=== PATIENT | female | born 1945 | race Caucasian/White ===

== ENCOUNTER 2018-12-06 05:59 | Day surgery (SDC) | payer MEDICARE, OTHER ==
[2018-12-06] MEDS ORDERED: Ondansetron 4 MG/2 ML SDV IVPUSH ONE (06:00)
[2018-12-06] MEDS ORDERED: Midazolam 1 MG/ML 2 ML SDV IV ONE (06:00)
[2018-12-06] MEDS ORDERED: Lactated Ringers 1,000 ML IV SCH (06:45)
[2018-12-06] MEDS ORDERED: Dextrose 5% in Water 1,000 ML IV SCH (08:00)
[2018-12-06 08:58] VITALS: BP 155/56; PULSE 70
--- NOTE | 2018-12-07 09:02 | OR ---
DATE OF OPERATION: 12/06/2018 SURGEON: Britt Yin MD PREOPERATIVE DIAGNOSIS: Visually significant cataract, right eye. POSTOPERATIVE DIAGNOSIS: Visually significant cataract, right eye. PROCEDURES PERFORMED: Phacoemulsification with intraocular lens placement, right eye. ASSISTANTS: None. ANESTHESIA: Local with sedation. COMPLICATIONS: None. BLOOD LOSS: None. IMPLANTS: A 21.0 diopter lens implanted. CDE: 1.85. DESCRIPTION OF PROCEDURE: After risks and benefits were reviewed with the patient, consent was obtained in the preoperative area, and the operative eye was marked with a surgical pen. In the preoperative area, due to Levaquin allergy, the patient received separate dilating drops consisting of cyclopentolate 1% and 2.5% phenylephrine with topical proparacaine to the right eye. The patient required 4 sets of drops due to poor dilation. The patient was taken to the operating room, where a time-out was performed, and the patient was placed under monitored anesthesia care. Topical tetracaine was used for anesthesia. The operative eye was prepped and draped for ophthalmic surgery, and the microscope was brought into position and focussed. A paracentesis incision was made, followed by injection of preservative-free 1% lidocaine into the anterior chamber, followed by injection of Viscoat into the anterior chamber. A microkeratome blade was used to make a corneal limbal incision temporarily. A cystotome was used to make the beginning of the capsulorrhexis, which was carried around 360 degrees in a curvilinear fashion using Utrata forceps. A Friend cannula with BSS was used to hydrodissect and hydrodelineate the nucleus. The nucleus was removed in a divide and conquer manner using phacoemulsification. Irrigation and aspiration were used to remove the remaining cortical material. Provisc was used to inflate the capsular bag, and a pre-loaded 21.0 diopter lens, serial number [id number] was injected into the capsular bag. A Sinskey hook was used to position and center the lens. Next, irrigation and aspiration was used to remove any remaining viscoelastic and cortical material from the anterior chamber. BSS on a cannula was used to inflate the anterior chamber and hydrate the wound. The wound was checked and found to be watertight. No moxifloxacin was injected due to Levaquin allergy. Drapes were removed and the eye was cleaned. A drop of brimonidine 0.15% and a drop of TobraDex was placed. The eye was shielded, and the patient was taken to the recovery room in stable condition. /[id number] DOROTEO/VALARIE CC: SHANEL LEIVA, [employer] O[employer]
== END 2018-12-06 09:40 | disposition home or self-care (01) ==
LOC: FB.SDS 05:59
PROVIDERS: ATTEND Ophthalmology
DX: E11.36 Type 2 diabetes mellitus with diabetic cataract (principal); I10 Essential (primary) hypertension; M16.11 Unilateral primary osteoarthritis, right hip; K21.9 Gastro-esophageal reflux disease without esophagitis; K29.50 Unspecified chronic gastritis without bleeding; E78.00 Pure hypercholesterolemia, unspecified; J44.9 Chronic obstructive pulmonary disease, unspecified; F41.1 Generalized anxiety disorder; E66.9 Obesity, unspecified; Z68.43 Body mass index [BMI] 50.0-59.9, adult; Z79.899 Other long term (current) drug therapy; Z79.4 Long term (current) use of insulin; Z88.6 Allergy status to analgesic agent; Z88.1 Allergy status to other antibiotic agents; Z88.8 Allergy status to other drugs, medicaments and biological substances; Z91.018 Allergy to other foods; Z91.048 Other nonmedicinal substance allergy status; Z79.82 Long term (current) use of aspirin
CPT/HCPCS: 00142; 66984; 82962; J2250; J2405; J7060; V2632

== ENCOUNTER 2019-01-10 12:10 | Emergency (ER) | payer MEDICARE, OTHER ==
[2019-01-10] MEDS ORDERED: Magnesium Sulfate/Water 2 GM in Premix Bag 1 BAG IV STA (13:02)
[2019-01-10] MEDS ORDERED: Nitroglycerin 0.4 MG Tab.SL SL PRN (13:10)
--- NOTE | 2019-01-10 13:10 | EDM.PDOC ---
ED HPI GENERAL MEDICAL PROBLEM - General Stated Complaint: POSSIBLE TIA Time Seen by Provider: 01/10/19 12:15 Source of Information: Reports: Patient History Limitations: Reports: No Limitations - History of Present Illness INITIAL COMMENTS - FREE TEXT/NARRATIVE: sent over from walkin clinic with concern for left leg weakness, right facial droop. Patient states that she has been under a lot of stress lately. She went to bed about 0600 this morning feeling ok and then woke up around 0800. When she went to take a drink of water and breakfast of slimfast and it all came out the right side of her face. She waited a while, then her left arm started to feel erica tingly and like it was falling asleep, lasted maybe 20 minutes. has had on/off symptoms over the past week of arm feeling funny, pain in left side of neck and jaw, and chest feeling fluttery/funny. Not sure how long it lasts. Sometimes feels sweaty with it. No nausea or vomiting, but has had diarrhea over the past few days. Nothing seems to bring it on, but if she stops what she is doing and takes some deep breaths, it seems to go away. New this morning was the right side of her face feeling funny. She also has had some weakness in her left leg, but this is chronic and longstanding. Maybe feels slightly stiffer when trying to move it. History diabetes on insulin, didn't take this morning. Takes losartan, HCTZ, procardia XR, and metoprolol for blood pressure. Only took Losartan and Procardia this morning. She states she had three temperatures 103F oral when she is very stressed, but then it would immediately come back down. No other symptoms with it. - Related Data Allergies Allergy/AdvReac Type Severity Reaction Status Date / Time acetaminophen [From Midol] Allergy Tachycardia Verified 01/10/19 14:16 ammonia Allergy Nausea and Verified 01/10/19 14:16 Vomiting aspirin Allergy Nose Bleeds Verified 01/10/19 14:16 corn [[place]] Allergy Headache Verified 01/10/19 14:16 doxycycline Allergy Anaphylactic Verified 01/10/19 14:16 Shock duloxetine [From Cymbalta] Allergy Other Verified 01/10/19 14:16 erythromycin base Allergy Anaphylactic Verified 01/10/19 14:16 [Erythromycin Base] Shock levofloxacin [From Levaquin] Allergy Anaphylactic Verified 01/10/19 14:16 Shock nedocromil sodium Allergy Anaphylactic Verified 01/10/19 14:16 [From Tilade] Shock nisoldipine [From Sular] Allergy Tachycardia Verified 01/10/19 14:16 nitrofurantoin Allergy Cannot Verified 01/10/19 14:16 [From Macrobid] Remember nitrofurantoin Allergy Cannot Verified 01/10/19 14:16 macrocrystalline Remember [From Macrobid] pamabrom [From Midol] Allergy Tachycardia Verified 01/10/19 14:16 pseudoephedrine Allergy Cannot Verified 01/10/19 14:16 Remember pyrilamine maleate Allergy Tachycardia Verified 01/10/19 14:16 [From Midol] Anything with bleach in it Allergy Hives Uncoded 01/10/19 14:16 METALS Allergy Itching Uncoded 01/10/19 14:16 Wheat Allergy Headache Uncoded 01/10/19 14:16 Home Meds: Home Meds Eszopiclone [Lunesta] 2 mg PO BEDTIME PRN 11/23/13 [History] Multivitamin with Minerals [Multiple Vitamin] 1 tab PO DAILY 12/11/13 [History] Losartan [Cozaar] 100 mg PO BEDTIME 04/17/14 [History] Metoprolol Succinate [Toprol XL] 75 mg PO BEDTIME 04/17/14 [History] NIFEdipine [Nifedipine ER] 60 mg PO DAILY 04/17/14 [History] Insulin Aspart [Novolog Flexpen] 8 unit SQ TIDMEALS 02/08/15 [History] Pantoprazole [ProTONIX] 40 mg PO 0600 02/08/15 [History] Aspirin [Children's Aspirin] 81 mg PO DAILY 12/04/18 [History] Cannabidiol (Cbd) Extract [Epidiolex] 1 - 2 capful PO DAILY 12/04/18 [History] Docusate Sodium [Colace] 100 mg PO BID PRN 12/04/18 [History] Insulin Detemir [Levemir Flextouch] 33 units SQ BEDTIME 12/04/18 [History] Pramipexole [Mirapex] 1 mg PO Q12H PRN 12/04/18 [History] Rosuvastatin [Crestor] 20 mg PO DAILY 12/04/18 [History] Temazepam 15 mg PO BEDTIME PRN 12/04/18 [History] Triamcinolone Acetonide [Triamcinolone Acetonide 0.1% Crm] 1 applic TP BID 12/04 [History] diphenhydrAMINE [Benadryl] 25 mg PO TID 12/04/18 [History] hydroCHLOROthiazide [Hydrochlorothiazide] 25 mg PO DAILY 12/04/18 [History] metFORMIN HCl [Glucophage] 1,000 mg PO BID 12/04/18 [History] traMADol [Ultram] 50 mg PO Q6H PRN 12/04/18 [History] Fluticasone Propionate [Flonase] 1 spray NASBOTH BID 01/10/19 [History] Past Medical History Cardiovascular History: Reports: Arrhythmia, Heart Murmur, High Cholesterol, Hypertension Other Cardiovascular History: BRADYCARDIA Respiratory History: Reports: Asthma, Bronchitis, Recurrent, COPD, Sleep Apnea Gastrointestinal History: Reports: GERD Other [place] [employer] History: 3 childrewn all grown Musculoskeletal History: Reports: Fibromyalgia, Osteoarthritis, Other (See Below ) Other Musculoskeletal History: LUMBAR SPONDYLOSIS Neurological History: Reports: Neuropathy, Peripheral Psychiatric History: Reports: Anxiety Endocrine/Metabolic History: Reports: Diabetes, Type II, Obesity/BMI 30+ - Past Surgical History HEENT Surgical History: Reports: Adenoidectomy, Tonsillectomy GI Surgical History: Reports: Appendectomy, Cholecystectomy, Colonoscopy, ERCP Female Surgical History: Reports: Hysterectomy Neurological Surgical History: Reports: Discectomy, Laminectomy Musculoskeletal Surgical History: Reports: Other (See Below) Other Musculoskeletal Surgeries/Procedures:: BACK SURGERY, KNEE SURGERY Oncologic Surgical History: Reports: Biopsy of Breast Social & Family History - Tobacco Use Smoking Status *Q: Never Smoker - Caffeine Use Caffeine Use: Reports: None - Alcohol Use Alcohol Use History: No - Recreational Drug Use Recreational Drug Use: No - Living Situation & Occupation Social History Comment: significant emotion stress - daughter two years ago of heart arrhythmia. Was with family at a reunion this weekend and her twin sister is an alcoholic, which was also very difficult for her. ED ROS GENERAL - Review of Systems Review Of Systems: See Below Constitutional: Reports: Chills, Malaise, Weakness, Fatigue. Denies: Fever HEENT: Reports: No Symptoms Respiratory: Denies: Shortness of Breath, Wheezing, Cough, Sputum Cardiovascular: Reports: Chest Pain, Lightheadedness, Palpitations (chronic). Denies: Dyspnea on Exertion GI/Abdominal: Reports: Diarrhea. Denies: Nausea, Vomiting : Denies: Dysuria, Frequency, Urgency Musculoskeletal: Reports: Back Pain, Leg Pain Skin: Reports: No Symptoms Neurological: Reports: Confusion, Numbness, Tingling. Denies: Headache, Pre- Existing Deficit, Seizure, Trouble Speaking, Gait Disturbance Psychiatric: Reports: Depression Hematologic/Lymphatic: Reports: No Symptoms Immunologic: Reports: No Symptoms ED EXAM, GENERAL - Physical Exam Exam: See Below Free Text/Narrative:: Gen.: Alert, very pleasant no acute distress. Head is atraumatic. Neck is supple and there is no cervical lymphadenopathy. Heart is regular rate and rhythm voiding on tachycardia, I do not hear any murmur or rub, decreased sounds secondary to body habitus. Lungs are clear throughout with no wheezes or crackles.abdomen is obese, soft and nontender. peripheral pulses are +2 in both equal for upper and lower extremities although difficult to palpate in the lower initially. She has no lower extremity edema but is morbidly obese. No calf tenderness. Pupils are equal and reactive, uvula is midline, tongue is midline. Facial muscles are symmetric and the sensation is present on both sides. Neck strength equal. No pronator drift. Left leg unable to lift, chronic per her report. Testing of muscles of the lower leg is equal. Hand/arm strength equal side to side. Gait is altered primarily due to left leg it seems. Reflexes very difficult to illicit secondary to body habitus. EKG INTERPRETATION Rhythm: NSR [place]: Normal P-Wave: Present QRS: Normal ST-T: Normal Comparison: Change From Previous EKG Course - Vital Signs Text/Narrative:: presenting with two concerning symptoms - possible TIA this morning and also concern for unstable angina neuro exam normal labs, head CT ordered EKG no ST changes, PTc 521 - Orders/Labs/Meds Orders: Active Orders 24 hr Category Date Time Status EKG Documentation Completion [RC] ASDIRECTED Care 01/10/19 12:21 Active EKG Documentation Completion [RC] STAT Care 01/10/19 12:21 Active CXR [Chest 1V Frontal] [CR] Stat Exams 01/10/19 14:12 Taken Head wo Cont [CT] Stat Exams 01/10/19 12:21 Taken Nitroglycerin [Nitrostat] Med 01/10/19 13:10 Active 0.4 mg SL Q5M PRN Sodium Chloride 0.9% [Normal Saline] 1,000 ml Med 01/10/19 14:15 Active IV ASDIRECTED EKG 12 Lead [EK] Routine Ther 01/10/19 12:21 Ordered Medication Orders Sodium Chloride (Normal Saline) 1,000 mls @ 500 mls/hr IV ASDIRECTED GRUPO Last Infusion: 01/10/19 14:42 Dose: 400 mls/hr Admin: 01/10/19 14:33 Dose: 500 mls/hr Nitroglycerin (Nitrostat) 0.4 mg SL Q5M PRN PRN Reason: Chest Pain Labs: Laboratory Tests 01/10/19 01/10/19 01/10/19 Range/Units 12:20 12:45 12:45 WBC 6.4 (4.5-12.0) X10-3/uL RBC 4.05 (3.23-5.20) x10(6)uL Hgb 11.6 (11.5-15.5) g/dL Hct 34.5 (30.0-51.3) % MCV 85.2 (80-96) fL MCH 28.6 (27.7-33.6) pg MCHC 33.6 (32.2-35.4) g/dL RDW 14.1 (11.5-15.5) % Plt Count 177 (125-369) X10(3)uL MPV 11.2 H (7.4-10.4) fL Neut % (Auto) 59.4 (46-82) % Lymph % (Auto) 30.4 (13-37) % [place] % (Auto) 5.9 (4-12) % Eos % (Auto) 3 (1.0-5.0) % Baso % (Auto) 1 (0-2) % Neut # (Auto) 3.7 (1.6-8.3) # Lymph # (Auto) 2.0 (0.6-5.0) # [place] # (Auto) 0.4 (0.0-1.3) # Eos # (Auto) 0.2 (0.0-0.8) # Baso # (Auto) 0.1 (0.0-0.2) # PT (8.7-11.1) INR (0.89-1.13) Sodium 139 (135-145) mmol/L Potassium 3.7 (3.5-5.3) mmol/L Chloride 106 (100-110) mmol/L Carbon Dioxide 23 (21-32) mmol/L BUN 11 (7-18) mg/dL Creatinine 0.8 (0.55-1.02) mg/dL Est Cr Clr Drug Dosing TNP Estimated GFR (MDRD) > 60 (>60) BUN/Creatinine Ratio 13.8 (9-20) Glucose 264 H (80-116) mg/dL Calcium 8.4 L (8.6-10.2) mg/dL Magnesium 1.6 L (1.8-2.5) mg/dL Total Bilirubin 0.4 (0.1-1.3) mg/dL AST 19 (5-25) IU/L ALT 15 (12-36) U/L Alkaline Phosphatase 102 (56-112) IU/L Troponin I (<0.017-0.056) ng/mL Total Protein 7.0 (6.0-8.0) g/dL Albumin 2.7 L (3.2-4.6) g/dL Globulin 4.3 g/dL Albumin/Globulin Ratio 0.6 01/10/19 01/10/19 Range/Units 12:45 12:45 WBC (4.5-12.0) X10-3/uL RBC (3.23-5.20) x10(6)uL Hgb (11.5-15.5) g/dL Hct (30.0-51.3) % MCV (80-96) fL MCH (27.7-33.6) pg MCHC (32.2-35.4) g/dL RDW (11.5-15.5) % Plt Count (125-369) X10(3)uL MPV (7.4-10.4) fL Neut % (Auto) (46-82) % Lymph % (Auto) (13-37) % [place] % (Auto) (4-12) % Eos % (Auto) (1.0-5.0) % Baso % (Auto) (0-2) % Neut # (Auto) (1.6-8.3) # Lymph # (Auto) (0.6-5.0) # [place] # (Auto) (0.0-1.3) # Eos # (Auto) (0.0-0.8) # Baso # (Auto) (0.0-0.2) # PT 9.2 (8.7-11.1) INR 0.95 (0.89-1.13) Sodium (135-145) mmol/L Potassium (3.5-5.3) mmol/L Chloride (100-110) mmol/L Carbon Dioxide (21-32) mmol/L BUN (7-18) mg/dL Creatinine (0.55-1.02) mg/dL Est Cr Clr Drug Dosing Estimated GFR (MDRD) (>60) BUN/Creatinine Ratio (9-20) Glucose (80-116) mg/dL Calcium (8.6-10.2) mg/dL Magnesium (1.8-2.5) mg/dL Total Bilirubin (0.1-1.3) mg/dL AST (5-25) IU/L ALT (12-36) U/L Alkaline Phosphatase (56-112) IU/L Troponin I 0.020 (<0.017-0.056) ng/mL Total Protein (6.0-8.0) g/dL Albumin (3.2-4.6) g/dL Globulin g/dL Albumin/Globulin Ratio Meds: Medications Generic Name Dose Route Start Last Admin Trade Name Freq PRN Reason Stop Dose Admin Sodium Chloride 1,000 mls @ 500 mls/hr 01/10/19 14:15 01/10/19 14:42 Normal Saline IV 400 mls/hr ASDIRECTED GRUPO Infusion Nitroglycerin 0.4 mg 01/10/19 13:10 Nitrostat SL Q5M PRN Chest Pain Discontinued Medications Generic Name Dose Route Start Last Admin Trade Name Freq PRN Reason Stop Dose Admin Aspirin 324 mg 01/10/19 13:10 01/10/19 14:44 Aspirin PO 01/10/19 13:11 324 mg ONETIME ONE Administration Magnesium Sulfate 2 gm/ Premix 50 mls @ 150 mls/hr 01/10/19 13:02 01/10/19 14 :42 IV 01/10/19 13:21 25 mls/hr ONETIME STA Infusion Labetalol HCl 20 mg 01/10/19 15:01 Normodyne IVPUSH 01/10/19 15:02 ONETIME ONE Protocol - Re-Assessments/Exams Free Text/Narrative Re-Assessment/Exam: 01/10/19 initial troponin returned 0.020, facility cutoff 0.[address] no blood seen, no midline shift rest of labs within normal limits except for elevated blood glucose Magnesium ordered for long QT BP very labile -- will hold on meds for now, if remains elevated will give small dose of beta gaby discussed with patient and family recommend transferring to [facility] for further workup of TIA and possible cardiac event/unstable angina. They are in agreement. Call placed to Dr. Familia Alberts accepting. Departure - Departure Time of Disposition: 15:50 Disposition: DC/Tfer to Acute Hospital 02 Condition: Good Clinical Impression: Unstable angina, Chest pain, rule out acute myocardial infarction, Diabetes mellitus type 2, Transient ischemic attack (TIA), Hypertension, Prolonged QT interval - Discharge Information *PRESCRIPTION DRUG MONITORING PROGRAM REVIEWED*: Not Applicable *COPY OF PRESCRIPTION DRUG MONITORING REPORT IN PATIENT RENATO: Not Applicable Referrals: PCP,Unknown [Ordering Only Provider] - Additional Instructions: transfer to Dr. Familia Alberts accepting - My Orders Last 24 Hours: My Active Orders 01/10/19 12:21 EKG Documentation Completion [RC] ASDIRECTED EKG Documentation Completion [RC] STAT Head wo Cont [CT] Stat EKG 12 Lead [EK] Routine 01/10/19 13:10 Nitroglycerin [Nitrostat] 0.4 mg SL Q5M PRN 01/10/19 14:12 CXR [Chest 1V Frontal] [CR] Stat 01/10/19 14:15 Sodium Chloride 0.9% [Normal Saline] 1,000 ml IV ASDIRECTED - Assessment/Plan Last 24 Hours: My Active Orders 01/10/19 12:21 EKG Documentation Completion [RC] ASDIRECTED EKG Documentation Completion [RC] STAT Head wo Cont [CT] Stat EKG 12 Lead [EK] Routine 01/10/19 13:10 Nitroglycerin [Nitrostat] 0.4 mg SL Q5M PRN 01/10/19 14:12 CXR [Chest 1V Frontal] [CR] Stat 01/10/19 14:15 Sodium Chloride 0.9% [Normal Saline] 1,000 ml IV ASDIRECTED
[2019-01-10] MEDS ORDERED: Sodium Chloride 0.9% 1,000 ML IV SCH (14:15)
[2019-01-10] MEDS: Aspirin 81 MG Tab.Chew PO ONE ×2 (14:33→14:44)
[2019-01-10] MEDS ORDERED: Labetalol 100 MG/20 ML MDV IVPUSH ONE (15:01)
[2019-01-10 18:41] VITALS: BP 241/105; PULSE 93
--- NOTE | 2019-01-11 09:44 | CR ---
INDICATION: Chest pain, palpitations. CHEST: AP upright view of the chest 01/10/19 was compared with 02/14/15 and 05/13, revealing the heart to be enlarged. Pulmonary vasculature appears prominent. Interstitial markings are prominent. Some alveolar infiltration is present. Findings suggest CHF with acute pulmonary edema, although aspiration pneumonia could also be present with this appearance. The aorta is tortuous with calcification in the arch. No large pleural effusion is identified. Overlying EKG leads are noted. IMPRESSION: ASHD, cardiomegaly with probable CHF and acute pulmonary edema. MTDD
== END 2019-01-10 16:40 ==
LOC: FB.ED 12:10
DX: G45.9 Transient cerebral ischemic attack, unspecified (principal); I20.0 Unstable angina; E11.42 Type 2 diabetes mellitus with diabetic polyneuropathy; I10 Essential (primary) hypertension; I45.81 Long QT syndrome; J44.9 Chronic obstructive pulmonary disease, unspecified; K21.9 Gastro-esophageal reflux disease without esophagitis; E78.00 Pure hypercholesterolemia, unspecified; M19.90 Unspecified osteoarthritis, unspecified site; E66.9 Obesity, unspecified; Z68.42 Body mass index [BMI] 45.0-49.9, adult; Z88.8 Allergy status to other drugs, medicaments and biological substances; Z88.6 Allergy status to analgesic agent; Z91.018 Allergy to other foods; Z88.1 Allergy status to other antibiotic agents; Z79.899 Other long term (current) drug therapy; Z79.4 Long term (current) use of insulin; Z79.82 Long term (current) use of aspirin
CPT/HCPCS: 36415; 70450; 71045; 80053; 81001; 83735; 84484; 85025; 85610; 93005; 96365; 96366; 96375; 99285; A9270; J3475; J3490; J7030; 93010

== ENCOUNTER 2019-02-14 11:55 | Observation (INO) | payer MEDICARE, OTHER ==
[~2019-02-14 11:55] MED LIST: Sucralfate 1 GM Tab PO SCH
[2019-02-14] MEDS ORDERED: Magnesium Sulfate/Water 2 GM in Premix Bag 1 BAG IV ONE (12:48)
[2019-02-14] MEDS ORDERED: NIFEdipine 60 MG Tab.ER PO ONE (14:43)
[2019-02-14] MEDS ORDERED: Hydrochlorothiazide 25 MG Tab PO ONE (14:44)
--- NOTE | 2019-02-14 16:03 | EDM.PDOC ---
ED HPI GENERAL MEDICAL PROBLEM - General Chief Complaint: Chest Pain Time Seen by Provider: 02/14/19 12:14 Source of Information: Reports: Patient History Limitations: Reports: No Limitations - History of Present Illness INITIAL COMMENTS - FREE TEXT/NARRATIVE: patient is a very pleasant 73-year-old female who presents today with concern for an episode this morning while she was at physical therapy where she suddenly had pain in her chest, left side and shoulder, felt sweaty and nauseous at the same time. She is not sure how long this lasted but it did resolve on its own without any intervention. She was evaluated by clinic physician, given ASA, and sent here for troponin and further evaluation. History diabetes, HTN, HLD daughter of arrhythmia 2 years ago Patient reports she has had trouble with both chronic left shoulder pain and ongoing nausea, especially following meals. She also describes some episodes where she will get left shoulder and arm pain, then get a bit sweaty. These seem to come and go without warning, and she is not able to quantify the timeframe or how often it happens. She is under a lot of stress at home right now. She has had chronic nausea and a feeling of something getting stuck in her stomach at times, but then self resolves after a while. Her appetite has sometimes been decreased, but she again cites her home stressors regarding this. She denies cough, recent cold or URI, fever, urinary symptoms, change in bowel habits. L anterior chest Pain Score (Numeric/FACES): 1 - Related Data Allergies Allergy/AdvReac Type Severity Reaction Status Date / Time ammonia Allergy Nausea and Verified 02/14/19 12:19 Vomiting aspirin Allergy Nose Bleeds Verified 02/14/19 12:19 corn [[place]] Allergy Headache Verified 02/14/19 12:19 doxycycline Allergy Anaphylactic Verified 02/14/19 12:19 Shock duloxetine [From Cymbalta] Allergy Other Verified 02/14/19 12:19 erythromycin base Allergy Anaphylactic Verified 02/14/19 12:19 [Erythromycin Base] Shock levofloxacin [From Levaquin] Allergy Anaphylactic Verified 02/14/19 12:19 Shock nedocromil sodium Allergy Anaphylactic Verified 02/14/19 12:19 [From Tilade] Shock nisoldipine [From Sular] Allergy Tachycardia Verified 02/14/19 12:19 nitrofurantoin Allergy Cannot Verified 02/14/19 12:19 [From Macrobid] Remember nitrofurantoin Allergy Cannot Verified 02/14/19 12:19 macrocrystalline Remember [From Macrobid] pamabrom [From Midol] Allergy Tachycardia Verified 02/14/19 12:19 pseudoephedrine Allergy Cannot Verified 02/14/19 12:19 Remember pyrilamine maleate Allergy Tachycardia Verified 02/14/19 12:19 [From Midol] Anything with bleach in it Allergy Hives Uncoded 02/14/19 12:19 METALS Allergy Itching Uncoded 02/14/19 12:19 Wheat Allergy Headache Uncoded 02/14/19 12:19 Home Meds: Home Meds Multivitamin with Minerals [Multiple Vitamin] 1 tab PO DAILY 12/11/13 [History] Losartan [Cozaar] 100 mg PO BEDTIME 04/17/14 [History] Metoprolol Succinate [Toprol XL] 75 mg PO BEDTIME 04/17/14 [History] NIFEdipine [Nifedipine ER] 60 mg PO DAILY 04/17/14 [History] Insulin Aspart [Novolog Flexpen] 8 unit SQ TIDMEALS 02/08/15 [History] Pantoprazole [ProTONIX] 40 mg PO 0600 02/08/15 [History] Aspirin [Children's Aspirin] 81 mg PO DAILY 12/04/18 [History] Docusate Sodium [Colace] 100 mg PO BID PRN 12/04/18 [History] Insulin Detemir [Levemir Flextouch] 33 units SQ BEDTIME 12/04/18 [History] Pramipexole [Mirapex] 1 mg PO TID 12/04/18 [History] Rosuvastatin [Crestor] 20 mg PO DAILY 12/04/18 [History] Triamcinolone Acetonide [Triamcinolone Acetonide 0.1% Crm] 1 applic TP BID 12/04 [History] diphenhydrAMINE [Benadryl] 25 mg PO TID PRN 12/04/18 [History] hydroCHLOROthiazide [Hydrochlorothiazide] 25 mg PO DAILY 12/04/18 [History] metFORMIN HCl [Glucophage] 1,000 mg PO BID 12/04/18 [History] traMADol [Ultram] 50 mg PO TID 12/04/18 [History] Fluticasone Propionate [Flonase] 1 spray NASBOTH BID 01/10/19 [History] Furosemide [Lasix] 40 mg PO DAILY 02/14/19 [History] Ibuprofen 400 mg PO TID PRN 02/14/19 [History] Sucralfate [Carafate] 1 gm PO TID 02/14/19 [History] Temazepam [Restoril] 15 mg PO BEDTIME PRN 02/14/19 [History] Past Medical History Cardiovascular History: Reports: Arrhythmia, Heart Failure, Heart Murmur, High Cholesterol, Hypertension Other Cardiovascular History: BRADYCARDIA Respiratory History: Reports: Asthma, Bronchitis, Recurrent, COPD, Sleep Apnea Gastrointestinal History: Reports: GERD Genitourinary History: Reports: None DIRECTOR OF LEARNING History: Reports: Other DIRECTOR OF LEARNING History: 3 childrewn all grown, Musculoskeletal History: Reports: Arthritis, Back Pain, Chronic, Fracture, Fibromyalgia, Neck Pain, Chronic, Osteoarthritis, Other (See Below) Other Musculoskeletal History: LUMBAR SPONDYLOSIS, hx fx L arm, toe, L ankle fx , fx tailbone Neurological History: Reports: Migraines, Neuropathy, Diabetic, Neuropathy, Peripheral, Other (See Below) Other Neuro History: hx bells palsy, 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 Psychiatric History: Reports: Anxiety, Dementia Endocrine/Metabolic History: Reports: Diabetes, Type II, Obesity/BMI 30+ Dermatologic History: Reports: Psoriasis - Infectious Disease History Infectious Disease History: Reports: Chicken Pox, Measles, Mumps, Shingles - Past Surgical History HEENT Surgical History: Reports: Adenoidectomy, Cataract Surgery, Tonsillectomy Other HEENT Surgeries/Procedures: R eye cataract Cardiovascular Surgical History: Reports: None GI Surgical History: Reports: Appendectomy, Cholecystectomy, Colonoscopy, ERCP Female Surgical History: Reports: Hysterectomy, Salpingo-Oophorectomy Neurological Surgical History: Reports: Discectomy, Laminectomy Musculoskeletal Surgical History: Reports: Arthroscopic Knee, Other (See Below) Other Musculoskeletal Surgeries/Procedures:: BACK SURGERY, R KNEE SURGERY Oncologic Surgical History: Reports: Biopsy of Breast Social & Family History - Family History Family Medical History: Noncontributory - Tobacco Use Smoking Status *Q: Never Smoker - Caffeine Use Caffeine Use: Reports: None - Recreational Drug Use Recreational Drug Use: No ED ROS GENERAL - Review of Systems Review Of Systems: ROS reveals no pertinent complaints other than HPI. ED EXAM, GENERAL - Physical Exam Exam: See Below Free Text/Narrative:: gen.: Alert, pleasant no acute distress. Head is atraumatic, throat without erythema, mucous members are moist. Neck is supple. Lungs are clear throughout with no wheezes or crackles. Heart is regular rate and rhythm. I do not hear murmur. Abdomen positive bowel sounds, soft nondistended nontender. Peripheral pulses +2 in both the upper and lower extremities and there is no lower extremity edema. Calves are equal in size and nontender. Her strength is equal side to side. She has a left-sided facial droop consistent with Lyons's palsy. Speech is clear and coherent. Course - Vital Signs Text/Narrative:: history concerning for possible ACS. No immediate risk factors for PE, no other concerns for infection. Difficult history to sort given chronic nausea and chronic intermittent left shoulder pain. EKG sinus rhythm no ST changes. Labs ordered. given ASA at clinic (prior to arrival.) Last Recorded V/S: Last Vital Signs Temp 35.2 C L 02/14/19 11:55 Pulse 68 02/14/19 11:55 Resp 18 02/14/19 11:55 BP 181/86 H 02/14/19 11:55 Pulse Ox 93 L 02/14/19 11:55 - Orders/Labs/Meds Orders: Medication Orders Acetaminophen (Tylenol) 650 mg PO Q4H PRN PRN Reason: Pain (Mild 1-3)/fever Aspirin (Aspirin) 81 mg PO DAILY [facility] Diphenhydramine HCl (Benadryl) 25 mg PO TID PRN PRN Reason: Hives Docusate Sodium (Colace) 100 mg PO BID PRN PRN Reason: Constipation Fluticasone Propionate (Flonase) gm NASBOTH BID PRN PRN Reason: Allergies Furosemide (Lasix) 40 mg PO DAILY PRN PRN Reason: Edema Hydrochlorothiazide (Hydrochlorothiazide) 25 mg PO DAILY [facility] Promethazine HCl 6.25 mg/ (Sodium Chloride) 50.25 mls @ 200 mls/hr IV Q6H PRN PRN Reason: Nausea/Vomiting Losartan Potassium (Cozaar) 100 mg PO BEDTIME [facility] Metformin HCl (Glucophage) 1,000 mg PO BIDMEALS [facility] Metoprolol Succinate (Toprol Xl) 75 mg PO BEDTIME [facility] Morphine Sulfate (Morphine) 2 mg IVPUSH Q2H PRN PRN Reason: Pain (severe 7-10) Nifedipine (Procardia Xl) 60 mg PO DAILY [facility] Nitroglycerin (Nitrostat) 0.4 mg SL Q5M PRN PRN Reason: Chest Pain Non-Formulary Medication (Insulin Aspart [Novolog Flexpen]) 8 unit SQ TIDMEALS [facility] Non-Formulary Medication (Insulin Detemir [Levemir Flextouch]) 33 units SQ BEDTIME [facility] Non-Formulary Medication (Multivitamin With Minerals [Multiple Vitamin]) 1 tab PO DAILY [facility] Ondansetron HCl (Zofran Odt) 4 mg PO Q4H PRN PRN Reason: nausea, able to take PO Pantoprazole Sodium (Protonix) 40 mg PO 0600 [facility] Pramipexole Dihydrochloride (Mirapex) 1 mg PO TID PRN PRN Reason: RESTLESS LEGS Rosuvastatin Calcium (Crestor) 20 mg PO DAILY [facility] Sodium Chloride (Saline Flush) 10 ml FLUSH ASDIRECTED PRN PRN Reason: Keep Vein Open Sucralfate (Carafate) 1 gm PO TIDAC [facility] Temazepam (Restoril) 15 mg PO BEDTIME PRN PRN Reason: Sleep Tramadol HCl (Ultram) 50 mg PO TID PRN PRN Reason: Pain Triamcinolone Acetonide (Triamcinolone Acetonide 0.1% Crm) gm TOP BID PRN PRN Reason: Rash Labs: Laboratory Tests 02/14/19 02/14/19 02/14/19 Range/Units 12:05 12:05 12:05 WBC 7.3 (4.5-12.0) X10-3/uL RBC 4.40 (3.23-5.20) x10(6)uL Hgb 12.0 (11.5-15.5) g/dL Hct 37.2 (30.0-51.3) % MCV 84.6 (80-96) fL MCH 27.2 L (27.7-33.6) pg MCHC 32.1 L (32.2-35.4) g/dL RDW 13.7 (11.5-15.5) % Plt Count 166 (125-369) X10(3)uL MPV 13.0 H (7.4-10.4) fL Neut % (Auto) 57.1 (46-82) % Lymph % (Auto) 33.9 (13-37) % [place] % (Auto) 5.9 (4-12) % Eos % (Auto) 2 (1.0-5.0) % Baso % (Auto) 1 (0-2) % Neut # (Auto) 4.1 (1.6-8.3) # Lymph # (Auto) 2.5 (0.6-5.0) # [place]eadle # (Auto) 0.4 (0.0-1.3) # Eos # (Auto) 0.2 (0.0-0.8) # Baso # (Auto) 0.1 (0.0-0.2) # Sodium 139 (135-145) mmol/L Potassium 3.6 (3.5-5.3) mmol/L Chloride 101 D (100-110) mmol/L Carbon Dioxide 29 (21-32) mmol/L BUN 15 (7-18) mg/dL Creatinine 1.2 H (0.55-1.02) mg/dL Est Cr Clr Drug Dosing 38.69 mL/min Estimated GFR (MDRD) 44 L (>60) BUN/Creatinine Ratio 12.5 (9-20) Glucose 283 H (80-116) mg/dL Calcium 8.9 (8.6-10.2) mg/dL Troponin I < 0.017 L (<0.017-0.056) ng/mL 02/14/19 Range/Units 15:08 WBC (4.5-12.0) X10-3/uL RBC (3.23-5.20) x10(6)uL Hgb (11.5-15.5) g/dL Hct (30.0-51.3) % MCV (80-96) fL MCH (27.7-33.6) pg MCHC (32.2-35.4) g/dL RDW (11.5-15.5) % Plt Count (125-369) X10(3)uL MPV (7.4-10.4) fL Neut % (Auto) (46-82) % Lymph % (Auto) (13-37) % [place] % (Auto) (4-12) % Eos % (Auto) (1.0-5.0) % Baso % (Auto) (0-2) % Neut # (Auto) (1.6-8.3) # Lymph # (Auto) (0.6-5.0) # [place]eadle # (Auto) (0.0-1.3) # Eos # (Auto) (0.0-0.8) # Baso # (Auto) (0.0-0.2) # Sodium (135-145) mmol/L Potassium (3.5-5.3) mmol/L Chloride (100-110) mmol/L Carbon Dioxide (21-32) mmol/L BUN (7-18) mg/dL Creatinine (0.55-1.02) mg/dL Est Cr Clr Drug Dosing mL/min Estimated GFR (MDRD) (>60) BUN/Creatinine Ratio (9-20) Glucose (80-116) mg/dL Calcium (8.6-10.2) mg/dL Troponin I < 0.017 L (<0.017-0.056) ng/mL Meds: Medications Generic Name Dose Route Start Last Admin Trade Name Freq PRN Reason Stop Dose Admin Acetaminophen 650 mg 02/14/19 16:27 Tylenol PO Q4H PRN Pain (Mild 1-3)/fever Aspirin 81 mg 02/15/19 09:00 Aspirin PO DAILY [facility] Diphenhydramine HCl 25 mg 02/14/19 16:36 Benadryl PO TID PRN Hives Docusate Sodium 100 mg 02/14/19 16:36 Colace PO BID PRN Constipation Fluticasone Propionate gm 02/14/19 16:36 Flonase NASBOTH BID PRN Allergies Furosemide 40 mg 02/14/19 16:36 Lasix PO DAILY PRN Edema Hydrochlorothiazide 25 mg 02/15/19 09:00 Hydrochlorothiazide PO DAILY [facility] Promethazine HCl 6.25 mg/ 50.25 mls @ 200 mls/hr 02/14/19 16:27 Sodium Chloride IV Q6H PRN Nausea/Vomiting Losartan Potassium 100 mg 02/14/19 21:00 Cozaar PO BEDTIME [facility] Metformin HCl 1,000 mg 02/14/19 18:00 Glucophage PO BIDMEALS [facility] Metoprolol Succinate 75 mg 02/14/19 21:00 Toprol Xl PO BEDTIME [facility] Morphine Sulfate 2 mg 02/14/19 16:27 Morphine IVPUSH Q2H PRN Pain (severe 7-10) Nifedipine 60 mg 02/15/19 09:00 Procardia Xl PO DAILY [facility] Nitroglycerin 0.4 mg 02/14/19 16:32 Nitrostat SL Q5M PRN Chest Pain Non-Formulary Medication 8 unit 02/14/19 18:00 Insulin Aspart [Novolog Flexpen] SQ TIDMEALS [facility] Non-Formulary Medication 33 units 02/14/19 21:00 Insulin Detemir [Levemir Flextouch] SQ BEDTIME [facility] Non-Formulary Medication 1 tab 02/15/19 09:00 Multivitamin With Minerals [Multiple Vitamin] PO DAILY [facility] Ondansetron HCl 4 mg 02/14/19 16:27 Zofran Odt PO Q4H PRN nausea, able to take PO Pantoprazole Sodium 40 mg 02/15/19 06:00 Protonix PO 0600 [facility] Pramipexole Dihydrochloride 1 mg 02/14/19 16:36 Mirapex PO TID PRN RESTLESS LEGS Rosuvastatin Calcium 20 mg 02/14/19 16:36 Crestor PO DAILY [facility] Sodium Chloride 10 ml 02/14/19 16:27 Saline Flush FLUSH ASDIRECTED PRN Keep Vein Open Sucralfate 1 gm 02/14/19 17:30 Carafate PO TIDAC [facility] Temazepam 15 mg 02/14/19 16:36 Restoril PO BEDTIME PRN Sleep Tramadol HCl 50 mg 02/14/19 16:36 Ultram PO TID PRN Pain Triamcinolone Acetonide gm 02/14/19 16:36 Triamcinolone Acetonide 0.1% Crm TOP BID PRN Rash Discontinued Medications Generic Name Dose Route Start Last Admin Trade Name Freq PRN Reason Stop Dose Admin Hydrochlorothiazide 25 mg 02/14/19 14:44 02/14/19 15:24 Hydrochlorothiazide PO 02/14/19 14:45 25 mg ONETIME ONE Administration Magnesium Sulfate 2 gm/ Premix 50 mls @ 150 mls/hr 02/14/19 12:48 02/14/19 13 :34 IV 02/14/19 13:07 150 mls/hr ONETIME ONE Administration Nifedipine 60 mg 02/14/19 14:43 02/14/19 15:24 Procardia Xl PO 02/14/19 14:44 60 mg ONETIME ONE Administration - Re-Assessments/Exams Free Text/Narrative Re-Assessment/Exam: 02/14/19 1130 initial troponin negative, labs otherwise unremarkable. Will get second trop at 3 hours. Patient has not had recurrence of pain since here, still mild nausea. Hasn't taken meds today, so will give dose of home medications to help bring down blood pressure, which has remained slightly elevated and somewhat labile. Free Text/Narrative Re-Assessment/Exam: 02/14/19 15:45 second troponin negative. Given history discussed with patient obs admission for r/o ACS. Dr Engle accepting Departure - Departure Time of Disposition: 16:44 Disposition: Refer to Observation Condition: Good Clinical Impression: Chest pain in adult, Nausea - Discharge Information *PRESCRIPTION DRUG MONITORING PROGRAM REVIEWED*: Not Applicable *COPY OF PRESCRIPTION DRUG MONITORING REPORT IN PATIENT RENATO: Not Applicable
[2019-02-14] MEDS ORDERED: Ondansetron 4 MG Tab PO PRN (16:27)
[2019-02-14] MEDS ORDERED: Morphine 2 MG/ML Syringe IVPUSH PRN (16:27)
[2019-02-14] MEDS ORDERED: Promethazine 6.25 MG in Sodium Chloride 0.9% 50 ML IV PRN (16:27)
[2019-02-14] MEDS ORDERED: Sodium Chloride 0.9% 10 ML Syringe FLUSH PRN (16:27)
[2019-02-14] MEDS ORDERED: Acetaminophen 325 MG Tab PO PRN (16:27)
[2019-02-14] MEDS ORDERED: Nitroglycerin 0.4 MG Tab.SL SL PRN (16:32)
[2019-02-14] MEDS ORDERED: Docusate Sodium 100 MG Cap PO PRN (16:36)
[2019-02-14] MEDS ORDERED: Temazepam 15 MG Cap PO PRN (16:36)
[2019-02-14] MEDS ORDERED: Fluticasone Propionate Nasal Spray 16 GM Bottle NASBOTH PRN (16:36)
[2019-02-14] MEDS ORDERED: Furosemide 40 MG Tab *PTOM PO PRN (16:36)
[2019-02-14] MEDS ORDERED: diphenhydrAMINE 25 MG Cap PO PRN (16:36)
[2019-02-14] MEDS ORDERED: Triamcinolone Acetonide 0.1% Crm 15 GM Tube TOP PRN (16:36)
[2019-02-14] MEDS ORDERED: traMADol 50 MG Tab PO PRN (16:36)
--- NOTE | 2019-02-14 17:09 | PCM.HP.2 ---
H&P History of Present Illness - General Date of Service: 02/14/19 Admit Problem/Dx: Admission Diagnosis/Problem Admission Diagnosis/Problem Chest pain of uncertain etiology Source of Information: Patient, Provider - History of Present Illness Initial Comments - Free Text/Narative: This 73 yr old female was doing physical therapy this morning and started having chest pain around 930-10am, had cold sweats, nausea and had emesis of bile. Seen by provider in clinic given ASA and ambulance brought her to ER. She has not eaten all day, had another emesis when she got to ER. Describes as achy annoying pain mid chest, but does not radiate to neck or jaw. She states she has chronic left arm pain so can't tell if its different or not. She did not take any Novolog today and due for Levemstephanie correa, used her last pen yesterday. No diarrhea but constipation. No shortness of breath with pain. Can' t say how long it is lasting. Has some stress at home per ER. Had 2 negative troponin in ER, EKG showed sinus rhythm, no ischemic changes. L anterior chest Pain Score (Numeric/FACES): 1 - Related Data Allergies/Adverse Reactions: Allergies Allergy/AdvReac Type Severity Reaction Status Date / Time ammonia Allergy Nausea and Verified 02/14/19 12:19 Vomiting aspirin Allergy Nose Bleeds Verified 02/14/19 12:19 corn [Blue Eye] Allergy Headache Verified 02/14/19 12:19 doxycycline Allergy Anaphylactic Verified 02/14/19 12:19 Shock duloxetine [From Cymbalta] Allergy Other Verified 02/14/19 12:19 erythromycin base Allergy Anaphylactic Verified 02/14/19 12:19 [Erythromycin Base] Shock levofloxacin [From Levaquin] Allergy Anaphylactic Verified 02/14/19 12:19 Shock nedocromil sodium Allergy Anaphylactic Verified 02/14/19 12:19 [From Tilade] Shock nisoldipine [From Sular] Allergy Tachycardia Verified 02/14/19 12:19 nitrofurantoin Allergy Cannot Verified 02/14/19 12:19 [From Macrobid] Remember nitrofurantoin Allergy Cannot Verified 02/14/19 12:19 macrocrystalline Remember [From Macrobid] pamabrom [From Midol] Allergy Tachycardia Verified 02/14/19 12:19 pseudoephedrine Allergy Cannot Verified 02/14/19 12:19 Remember pyrilamine maleate Allergy Tachycardia Verified 02/14/19 12:19 [From [facility]] Anything with bleach in it Allergy Hives Uncoded 02/14/19 12:19 METALS Allergy Itching Uncoded 02/14/19 12:19 Wheat Allergy Headache Uncoded 02/14/19 12:19 Home Medications: Home Meds Multivitamin with Minerals [Multiple Vitamin] 1 tab PO DAILY 12/11/13 [History] Losartan [Cozaar] 100 mg PO BEDTIME 04/17/14 [History] Metoprolol Succinate [Toprol XL] 75 mg PO BEDTIME 04/17/14 [History] NIFEdipine [Nifedipine ER] 60 mg PO DAILY 04/17/14 [History] Insulin Aspart [Novolog Flexpen] 8 unit SQ TIDMEALS 02/08/15 [History] Pantoprazole [ProTONIX] 40 mg PO 0600 02/08/15 [History] Aspirin [Children's Aspirin] 81 mg PO DAILY 12/04/18 [History] Docusate Sodium [Colace] 100 mg PO BID PRN 12/04/18 [History] Insulin Detemir [Levemir Flextouch] 33 units SQ BEDTIME 12/04/18 [History] Pramipexole [Mirapex] 1 mg PO TID PRN 12/04/18 [History] Rosuvastatin [Crestor] 20 mg PO DAILY 12/04/18 [History] Triamcinolone Acetonide [Triamcinolone Acetonide 0.1% Crm] 1 applic TP BID PRN 12/04/18 [History] diphenhydrAMINE [Benadryl] 25 mg PO TID PRN 12/04/18 [History] hydroCHLOROthiazide [Hydrochlorothiazide] 25 mg PO DAILY 12/04/18 [History] metFORMIN HCl [Glucophage] 1,000 mg PO BIDMEALS 12/04/18 [History] traMADol [Ultram] 50 mg PO TID PRN 12/04/18 [History] Fluticasone Propionate [Flonase] 1 spray NASBOTH BID PRN 01/10/19 [History] Furosemide [Lasix] 40 mg PO DAILY PRN 02/14/19 [History] Ibuprofen 400 mg PO TID PRN 02/14/19 [History] Sucralfate [Carafate] 1 gm PO TIDAC 02/14/19 [History] Temazepam [Restoril] 15 mg PO BEDTIME PRN 02/14/19 [History] Past Medical History Cardiovascular History: Reports: Arrhythmia, Heart Failure, Heart Murmur, High Cholesterol, Hypertension Other Cardiovascular History: BRADYCARDIA Respiratory History: Reports: Asthma, Bronchitis, Recurrent, COPD, Sleep Apnea Gastrointestinal History: Reports: GERD Genitourinary History: Reports: None PATIENT RESOURCE COORDINATOR History: Reports: Other OB/BYN History: 3 childrewn all grown, Musculoskeletal History: Reports: Arthritis, Back Pain, Chronic, Fracture, Fibromyalgia, Neck Pain, Chronic, Osteoarthritis, Other (See Below) Other Musculoskeletal History: LUMBAR SPONDYLOSIS, hx fx L arm, toe, L ankle fx , fx tailbone Neurological History: Reports: Migraines, Neuropathy, Diabetic, Neuropathy, Peripheral, Other (See Below) Other Neuro History: hx bells palsy, 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 Psychiatric History: Reports: Anxiety, Dementia Endocrine/Metabolic History: Reports: Diabetes, Type II, Obesity/BMI 30+ Dermatologic History: Reports: Psoriasis - Infectious Disease History Infectious Disease History: Reports: Chicken Pox, Measles, Mumps, Shingles - Past Surgical History HEENT Surgical History: Reports: Adenoidectomy, Cataract Surgery, Tonsillectomy Other HEENT Surgeries/Procedures: R eye cataract Cardiovascular Surgical History: Reports: None GI Surgical History: Reports: Appendectomy, Cholecystectomy, Colonoscopy, ERCP Female Surgical History: Reports: Hysterectomy, Salpingo-Oophorectomy Neurological Surgical History: Reports: Discectomy, Laminectomy Musculoskeletal Surgical History: Reports: Arthroscopic Knee, Other (See Below) Other Musculoskeletal Surgeries/Procedures:: BACK SURGERY, R KNEE SURGERY Oncologic Surgical History: Reports: Biopsy of Breast Social & Family History - Family History Family Medical History: Noncontributory - Tobacco Use Smoking Status *Q: Never Smoker - Caffeine Use Caffeine Use: Reports: None - Recreational Drug Use Recreational Drug Use: No H&P Review of Systems - Review of Systems: Review Of Systems: See Below General: Reports: Diaphoresis. Denies: Fever, Chills, Weakness HEENT: Reports: No Symptoms Pulmonary: Reports: No Symptoms Cardiovascular: Reports: Chest Pain, Edema. Denies: Palpitations, Dyspnea on Exertion Gastrointestinal: Reports: Constipation, Difficulty Swallowing, Nausea, Vomiting. Denies: Abdominal Pain, Diarrhea Genitourinary: Reports: No Symptoms Musculoskeletal: Reports: Arm Pain (chronic). Denies: Neck Pain, Shoulder Pain Skin: Reports: Dryness Psychiatric: Reports: No Symptoms Neurological: Reports: Pre-Existing Deficit Exam - Exam Exam: See Below - Vital Signs Vital Signs: Last Vital Signs Temp 35.2 C L 02/14/19 11:55 Pulse 68 02/14/19 11:55 Resp 18 02/14/19 11:55 BP 181/86 H 02/14/19 11:55 Pulse Ox 93 L 02/14/19 11:55 Weight: 138.346 kg - Exam General: Alert, Oriented, Cooperative HEENT: PERRLA, Hearing Intact, Mucosa Moist & [place], Nares Patent, Normal Nasal Septum, Posterior Pharynx Clear, Conjunctiva Clear, EOMI, EACs Clear, TMs Clear Neck: Supple, Trachea Midline Lungs: Clear to Auscultation, Normal Respiratory Effort Cardiovascular: Regular Rate, Regular Rhythm GI/Abdominal Exam: Normal Bowel Sounds, Soft, Non-Tender, No Distention Extremities: Pedal Edema (2+, dry skin, stasis dermatitis) - Patient Data Lab Results Last 24 hrs: Laboratory Results - last 24 hr 02/14/19 02/14/19 02/14/19 Range/Units 12:05 12:05 12:05 WBC 7.3 (4.5-12.0) X10-3/uL RBC 4.40 (3.23-5.20) x10(6)uL Hgb 12.0 (11.5-15.5) g/dL Hct 37.2 (30.0-51.3) % MCV 84.6 (80-96) fL MCH 27.2 L (27.7-33.6) pg MCHC 32.1 L (32.2-35.4) g/dL RDW 13.7 (11.5-15.5) % Plt Count 166 (125-369) X10(3)uL MPV 13.0 H (7.4-10.4) fL Neut % (Auto) 57.1 (46-82) % Lymph % (Auto) 33.9 (13-37) % [place] % (Auto) 5.9 (4-12) % Eos % (Auto) 2 (1.0-5.0) % Baso % (Auto) 1 (0-2) % Neut # (Auto) 4.1 (1.6-8.3) # Lymph # (Auto) 2.5 (0.6-5.0) # [place] # (Auto) 0.4 (0.0-1.3) # Eos # (Auto) 0.2 (0.0-0.8) # Baso # (Auto) 0.1 (0.0-0.2) # Sodium 139 (135-145) mmol/L Potassium 3.6 (3.5-5.3) mmol/L Chloride 101 D (100-110) mmol/L Carbon Dioxide 29 (21-32) mmol/L BUN 15 (7-18) mg/dL Creatinine 1.2 H (0.55-1.02) mg/dL Est Cr Clr Drug Dosing 38.69 mL/min Estimated GFR (MDRD) 44 L (>60) BUN/Creatinine Ratio 12.5 (9-20) Glucose 283 H (80-116) mg/dL Calcium 8.9 (8.6-10.2) mg/dL Troponin I < 0.017 L (<0.017-0.056) ng/mL 02/14/19 Range/Units 15:08 WBC (4.5-12.0) X10-3/uL RBC (3.23-5.20) x10(6)uL Hgb (11.5-15.5) g/dL Hct (30.0-51.3) % MCV (80-96) fL MCH (27.7-33.6) pg MCHC (32.2-35.4) g/dL RDW (11.5-15.5) % Plt Count (125-369) X10(3)uL MPV (7.4-10.4) fL Neut % (Auto) (46-82) % Lymph % (Auto) (13-37) % [place] % (Auto) (4-12) % Eos % (Auto) (1.0-5.0) % Baso % (Auto) (0-2) % Neut # (Auto) (1.6-8.3) # Lymph # (Auto) (0.6-5.0) # [place] # (Auto) (0.0-1.3) # Eos # (Auto) (0.0-0.8) # Baso # (Auto) (0.0-0.2) # Sodium (135-145) mmol/L Potassium (3.5-5.3) mmol/L Chloride (100-110) mmol/L Carbon Dioxide (21-32) mmol/L BUN (7-18) mg/dL Creatinine (0.55-1.02) mg/dL Est Cr Clr Drug Dosing mL/min Estimated GFR (MDRD) (>60) BUN/Creatinine Ratio (9-20) Glucose (80-116) mg/dL Calcium (8.6-10.2) mg/dL Troponin I < 0.017 L (<0.017-0.056) ng/mL Result Diagrams: 02/14/19 12:05 02/14/19 12:05 EKG INTERPRETATION EKG Date: 02/14/19 Time: 13:29 Rhythm: NSR Rate (Beats/Min): 61 [place]: LAD-Left [place] Deviation P-Wave: Present QRS: Normal ST-T: Normal QT: Normal Comparison: No Change EKG Interpretation Comments: No STEMI, no ischemic changes. Borderline QTc at 498. Left ventricular hypertrophy. Late R-Wave progression. - Problem List (1) Chest pain, rule out acute myocardial infarction SNOMED Code(s): 18678321 ICD Code: R07.9 - CHEST PAIN, UNSPECIFIED Status: Acute Current Visit: No (2) Nausea and vomiting SNOMED Code(s): 38846169 ICD Code: R11.2 - NAUSEA WITH VOMITING, UNSPECIFIED Status: Acute Current Visit: No Onset Date: 12/01/13 (3) Diabetes mellitus type 2 SNOMED Code(s): 63582693 ICD Code: E11.9 - TYPE 2 DIABETES MELLITUS WITHOUT COMPLICATIONS Status: Acute Current Visit: No Onset Date: 12/03/13 (4) Chronic gastritis SNOMED Code(s): 7221189 ICD Code: K29.50 - UNSPECIFIED CHRONIC GASTRITIS WITHOUT BLEEDING Status: Acute Current Visit: No Onset Date: 12/14/13 (5) Hypertension SNOMED Code(s): 25879332 ICD Code: I10 - ESSENTIAL (PRIMARY) HYPERTENSION Status: Acute Current Visit: No (6) History of Lyons's palsy SNOMED Code(s): 673800094 ICD Code: Z86.69 - PERSONAL HISTORY OF DIS OF THE NERVOUS SYS AND SENSE ORGANS Status: Acute Current Visit: Yes Problem List Initiated/Reviewed/Updated: Yes Orders Last 24hrs: Active Orders 24 hr Category Date Time Status Patient Status [ADT] Routine ADT 02/14/19 16:27 Active Antiembolic Devices [RC] .Routine Care 02/14/19 16:27 Active Cardiac Education [RC] DAILY Care 02/14/19 16:36 Active Cardiac Monitoring [RC] CONTINUOUS Care 02/14/19 16:28 Active EKG Documentation Completion [RC] ASDIRECTED Care 02/14/19 16:31 Active EKG Documentation Completion [RC] ASDIRECTED Care 02/15/19 06:00 Active Oxygen Therapy [RC] PRN Care 02/14/19 16:27 Active Up With Assistance [RC] ASDIRECTED Care 02/14/19 16:27 Active VTE/DVT Education [RC] Per Unit Routine Care 02/14/19 16:27 Active Vital Signs [RC] Q4H Care 02/14/19 16:27 Active Clear Liquid Diet [DIET] Diet 02/14/19 Dinner Ordered TROPONIN I [CHEM] Routine Lab 02/14/19 21:00 Ordered TROPONIN I [CHEM] Routine Lab 02/15/19 06:00 Ordered Acetaminophen [Tylenol] Med 02/14/19 16:27 Active 650 mg PO Q4H PRN Aspirin Med 02/15/19 09:00 Pending 81 mg PO DAILY Docusate Sodium [Colace] Med 02/14/19 16:36 Ordered 100 mg PO BID PRN Fluticasone Propionate [Flonase] Med 02/14/19 16:36 Ordered DOSE gm NASBOTH BID PRN Furosemide [Lasix] Med 02/14/19 16:36 Ordered 40 mg PO DAILY PRN Insulin Aspart [Novolog Flexpen] Med 02/14/19 18:00 Ordered 8 unit SQ TIDMEALS Insulin Detemir [Levemir Flextouch] Med 02/14/19 21:00 Ordered 33 units SQ BEDTIME Losartan [Cozaar] Med 02/14/19 21:00 Ordered 100 mg PO BEDTIME Metoprolol Succinate [Toprol XL] Med 02/14/19 21:00 Ordered 75 mg PO BEDTIME Morphine Med 02/14/19 16:27 Active 2 mg IVPUSH Q2H PRN Multivitamin with Minerals [Multiple Vitamin] Med 02/15/19 09:00 Ordered 1 tab PO DAILY NIFEdipine [Procardia XL] Med 02/15/19 09:00 Ordered 60 mg PO DAILY Nitroglycerin [Nitrostat] Med 02/14/19 16:32 Active 0.4 mg SL Q5M PRN Ondansetron [Zofran ODT] Med 02/14/19 16:27 Active 4 mg PO Q4H PRN Pantoprazole [ProTONIX] Med 02/15/19 06:00 Ordered 40 mg PO 0600 Pramipexole [Mirapex] Med 02/14/19 16:36 Ordered 1 mg PO TID PRN Promethazine [Phenergan] 6.25 mg Med 02/14/19 16:27 Active Sodium Chloride 0.9% [Normal Saline] 50 ml IV Q6H Rosuvastatin [Crestor] Med 02/14/19 16:36 Ordered 20 mg PO DAILY Sodium Chloride 0.9% [Saline Flush] Med 02/14/19 16:27 Active 10 ml FLUSH ASDIRECTED PRN Sucralfate [Carafate] Med 02/14/19 17:30 Ordered 1 gm PO TIDAC Temazepam [Restoril] Med 02/14/19 16:36 Active 15 mg PO BEDTIME PRN Triamcinolone Acetonide [Triamcinolone Acetonide 0.1% Med 02/14/19 16:36 Ordered Crm] DOSE gm TOP BID PRN diphenhydrAMINE [Benadryl] Med 02/14/19 16:36 Ordered 25 mg PO TID PRN hydroCHLOROthiazide Med 02/15/19 09:00 Ordered 25 mg PO DAILY metFORMIN [Glucophage] Med 02/14/19 18:00 Ordered 1,000 mg PO BIDMEALS traMADol [Ultram] Med 02/14/19 16:36 Active 50 mg PO TID PRN Antiembolic Hose [OM.PC] Per Unit Routine Oth 02/14/19 16:28 Ordered Saline Lock Insert [OM.PC] Routine Oth 02/14/19 16:27 Ordered EKG 12 Lead [EK] Routine Ther 02/14/19 21:00 Ordered EKG 12 Lead [EK] Routine Ther 02/15/19 06:00 Ordered Medication Orders Acetaminophen (Tylenol) 650 mg PO Q4H PRN PRN Reason: Pain (Mild 1-3)/fever Aspirin (Aspirin) 81 mg PO DAILY [facility] Diphenhydramine HCl (Benadryl) 25 mg PO TID PRN PRN Reason: Hives Docusate Sodium (Colace) 100 mg PO BID PRN PRN Reason: Constipation Fluticasone Propionate (Flonase) gm NASBOTH BID PRN PRN Reason: Allergies Furosemide (Lasix) 40 mg PO DAILY PRN PRN Reason: Edema Hydrochlorothiazide (Hydrochlorothiazide) 25 mg PO DAILY [facility] Promethazine HCl 6.25 mg/ (Sodium Chloride) 50.25 mls @ 200 mls/hr IV Q6H PRN PRN Reason: Nausea/Vomiting Losartan Potassium (Cozaar) 100 mg PO BEDTIME [facility] Metformin HCl (Glucophage) 1,000 mg PO BIDMEALS [facility] Metoprolol Succinate (Toprol Xl) 75 mg PO BEDTIME [facility] Morphine Sulfate (Morphine) 2 mg IVPUSH Q2H PRN PRN Reason: Pain (severe 7-10) Nifedipine (Procardia Xl) 60 mg PO DAILY [facility] Nitroglycerin (Nitrostat) 0.4 mg SL Q5M PRN PRN Reason: Chest Pain Non-Formulary Medication (Insulin Aspart [Novolog Flexpen]) 8 unit SQ TIDMEALS [facility] Non-Formulary Medication (Insulin Detemir [Levemir Flextouch]) 33 units SQ BEDTIME [facility] Non-Formulary Medication (Multivitamin With Minerals [Multiple Vitamin]) 1 tab PO DAILY [facility] Ondansetron HCl (Zofran Odt) 4 mg PO Q4H PRN PRN Reason: nausea, able to take PO Pantoprazole Sodium (Protonix) 40 mg PO 0600 [facility] Pramipexole Dihydrochloride (Mirapex) 1 mg PO TID PRN PRN Reason: RESTLESS LEGS Rosuvastatin Calcium (Crestor) 20 mg PO DAILY [facility] Sodium Chloride (Saline Flush) 10 ml FLUSH ASDIRECTED PRN PRN Reason: Keep Vein Open Sucralfate (Carafate) 1 gm PO TIDAC [facility] Temazepam (Restoril) 15 mg PO BEDTIME PRN PRN Reason: Sleep Tramadol HCl (Ultram) 50 mg PO TID PRN PRN Reason: Pain Triamcinolone Acetonide (Triamcinolone Acetonide 0.1% Crm) gm TOP BID PRN PRN Reason: Rash Assessment/Plan Comment:: 1. Admit for rule out ACS. 2. Telemetry, serial troponin with EKG, Morphine & Nitro as needed, already on metoprolol, ACEI, statin. Lovenox 1 mg/kg q12h. 3. DVT: TEDs. 4. Clear liquid diet, advance to Consistent carb if tolerates. 5. Glucose checks ac & hs. 6. Full code but only 1 round of resuscitation if not successful wants it stopped. 7. Adjust treatments as necessary.
[2019-02-14] MEDS ORDERED: Insulin Lispro 100 Unit/ML 3 ML KwikPen SUBCUT SCH (18:45)
[2019-02-14] MEDS ORDERED: Aspirin 81 MG Tab.Chew PO ONE ×2 (18:58→19:01)
[2019-02-14] MEDS ORDERED: Enoxaparin 80 MG/0.8 ML Syringe ONE (18:59)
[2019-02-14] MEDS ORDERED: Enoxaparin 40 MG/0.4 ML Syringe ONE (18:59)
[2019-02-14] MEDS: Enoxaparin 120 MG/0.8 ML Syringe SUBCUT SCH (19:03)
[2019-02-14] MEDS: metFORMIN 1,000 MG Tab PO SCH (19:03)
[2019-02-14] MEDS: Rosuvastatin 20 MG Tab PO SCH (19:03)
[2019-02-14] MEDS ORDERED: Insulin Glargine,Human Rec. Analog 100 Units/ML 3 ML Pen SUBCUT SCH (21:00)
[2019-02-14] MEDS ORDERED: Losartan 50 MG Tab PO SCH (21:00)
[2019-02-14] MEDS ORDERED: Metoprolol Succinate 50 MG Tab.ER PO SCH (21:00)
[2019-02-14] MEDS: Metoprolol Succinate 50 MG Tab.ER PO SCH (21:12)
[2019-02-15] MEDS ORDERED: Pantoprazole 40 MG Tab.CR PO SCH (06:00)
[2019-02-15] MEDS: Enoxaparin 120 MG/0.8 ML Syringe SUBCUT SCH (06:16)
[2019-02-15] MEDS ORDERED: Insulin Lispro 100 Unit/ML 3 ML KwikPen SUBCUT SCH ×2 (08:00)
[2019-02-15] MEDS ORDERED: Insulin Glargine,Human Rec. Analog 100 Units/ML 3 ML Pen SUBCUT SCH (08:35)
[2019-02-15] MEDS ORDERED: NIFEDIPINE 60 MG PO SCH (09:00)
[2019-02-15] MEDS ORDERED: Hydrochlorothiazide 25 MG Tab *PTOM PO SCH (09:00)
[2019-02-15] MEDS ORDERED: Multivitamins,Therapeutic Tab PO SCH (09:00)
[2019-02-15] MEDS ORDERED: Aspirin 81 MG Tab.Chew PO SCH (09:00)
[2019-02-15] MEDS ORDERED: Perform Pain Reliever Gel 89 ML Tube TP SCH (09:00)
[2019-02-15] MEDS: Metoprolol Succinate 50 MG Tab.ER PO SCH (09:45)
[2019-02-15] MEDS: metFORMIN 1,000 MG Tab PO SCH (09:45)
[2019-02-15] MEDS: Rosuvastatin 20 MG Tab PO SCH (09:45)
[2019-02-15] MEDS: Sucralfate 1 GM Tab PO SCH ×2 (09:45→12:50)
--- NOTE | 2019-02-15 11:22 | PCM.DCSUM1 ---
Discharge Summary - Hospital Course HPI Initial Comments: This 73 yr old female was doing physical therapy this morning and started having chest pain around 930-10am, had cold sweats, nausea and had emesis of bile. Seen by provider in clinic given ASA and ambulance brought her to ER. She has not eaten all day, had another emesis when she got to ER. Describes as achy annoying pain mid chest, but does not radiate to neck or jaw. She states she has chronic left arm pain so can't tell if its different or not. She did not take any Novolog today and due for Venkat correa, used her last pen yesterday. No diarrhea but constipation. No shortness of breath with pain. Can' t say how long it is lasting. Has some stress at home per ER. Had 2 negative troponin in ER, EKG showed sinus rhythm, no ischemic changes. Diagnosis: Stroke: No - Discharge Data Discharge Date: 02/15/19 Discharge Disposition: Home, Self-Care 01 Condition: Good - Referral to Home Health Primary Care Physician: Oleksandr Raymond MD - Discharge Diagnosis/Problem(s) (1) Chest pain, rule out acute myocardial infarction SNOMED Code(s): 18755740 ICD Code: R07.9 - CHEST PAIN, UNSPECIFIED Status: Acute Current Visit: No (2) Nausea and vomiting SNOMED Code(s): 27650211 ICD Code: R11.2 - NAUSEA WITH VOMITING, UNSPECIFIED Status: Resolved Current Visit: No Onset Date: 12/01/13 (3) Diabetes mellitus type 2 SNOMED Code(s): 50985514 ICD Code: E11.9 - TYPE 2 DIABETES MELLITUS WITHOUT COMPLICATIONS Status: Acute Current Visit: No Onset Date: 12/03/13 (4) Chronic gastritis SNOMED Code(s): 0686936 ICD Code: K29.50 - UNSPECIFIED CHRONIC GASTRITIS WITHOUT BLEEDING Status: Acute Current Visit: No Onset Date: 12/14/13 (5) Hypertension SNOMED Code(s): 96711062 ICD Code: I10 - ESSENTIAL (PRIMARY) HYPERTENSION Status: Acute Current Visit: No (6) History of Lyons's palsy SNOMED Code(s): 986700300 ICD Code: Z86.69 - PERSONAL HISTORY OF DIS OF THE NERVOUS SYS AND SENSE ORGANS Status: Acute Current Visit: Yes - Patient Summary/Data Hospital Course: Patient was admitted for observation, no chest pain overnight but had chest pain around 8am this morning, left chest, left shoulder, base of her skull and down left arm. EKG was unchanged at 8 am from previous 3 that were done in ER and overnight. Troponin was <0.017 x 4 and 0.018 at 6 am. On exam at time of chest pain on the floor, pain in neck and base of skull was reproducible and pain in left shoulder was reproducible. Heating pad with Menthol topical pain cream applied. No further nausea or vomiting, tolerated clear liquids and advanced to Diabetic diet without issue. EKG faxed to [facility], recommended Persantine Stress test due to her abnormal EKG, chest pain and her BMI of 50. Once they get order faxed to them and get prior authorization approved they will call patient to set up a time. She uses [employer] and would need to work around that schedule. - Patient Instructions Diet: Diabetic Diet Activity: As Tolerated Showering/Bathing: May Shower Notify Provider of: Increased Pain, Nausea and/or Vomiting Other/Special Instructions: Follow up with Dr Raymond or Cassie Leal at [facility] in 1 week. Order for stress test was sent to [facility] , they will get prior approval for test and call you to schedule an appointment time. They would like the stress test done in the next couple days. - Discharge Plan *PRESCRIPTION DRUG MONITORING PROGRAM REVIEWED*: Not Applicable *COPY OF PRESCRIPTION DRUG MONITORING REPORT IN PATIENT RENATO: Not Applicable Home Medications: Home Meds Multivitamin with Minerals [Multiple Vitamin] 1 tab PO DAILY 12/11/13 [History] Losartan [Cozaar] 100 mg PO BEDTIME 04/17/14 [History] Metoprolol Succinate [Toprol XL] 50 mg PO BID 04/17/14 [History] NIFEdipine [Nifedipine ER] 60 mg PO DAILY 04/17/14 [History] Insulin Aspart [Novolog Flexpen] 8 unit SQ TIDMEALS 02/08/15 [History] Pantoprazole [ProTONIX] 40 mg PO 0600 02/08/15 [History] Aspirin [Children's Aspirin] 81 mg PO DAILY 12/04/18 [History] Docusate Sodium [Colace] 100 mg PO BID PRN 12/04/18 [History] Insulin Detemir [Levemir Flextouch] 33 units SQ BEDTIME 12/04/18 [History] Pramipexole [Mirapex] 1 mg PO BID PRN 12/04/18 [History] Rosuvastatin [Crestor] 20 mg PO DAILY 12/04/18 [History] Triamcinolone Acetonide [Triamcinolone Acetonide 0.1% Crm] 1 applic TP BID PRN 12/04/18 [History] diphenhydrAMINE [Benadryl] 25 mg PO TID PRN 12/04/18 [History] hydroCHLOROthiazide [Hydrochlorothiazide] 25 mg PO DAILY 12/04/18 [History] metFORMIN HCl [Glucophage] 1,000 mg PO BIDMEALS 12/04/18 [History] traMADol [Ultram] 50 mg PO TID PRN 12/04/18 [History] Fluticasone Propionate [Flonase] 1 spray NASBOTH BID PRN 01/10/19 [History] Furosemide [Lasix] 40 mg PO DAILY PRN 02/14/19 [History] Ibuprofen 400 mg PO TID PRN 02/14/19 [History] Mupirocin Oint [Bactroban Oint] 1 appful TP BID 02/14/19 [History] Sucralfate [Carafate] 1 gm PO TIDAC 02/14/19 [History] Temazepam [Restoril] 15 mg PO BEDTIME PRN 02/14/19 [History] Menthol [Perform Pain Reliever] 0 ml TP QID tube 02/15/19 [Rx] Oxygen Therapy Mode: Room Air Patient Handouts: Fall Prevention in the Home, Adult, [id number], Cardiac- Specific Troponin I and T Test, Electrocardiogram, [id number], Pharmacologic Stress Echocardiogram, Nrug-al-Olev, Nonspecific Chest Pain, Rgbe-[id number], Venous Thromboembolism Prevention Forms: ED Department Discharge Referrals: Radha Torres MD [Ordering Only Provider] - 02/15/19 (Persantine Stress test needs to be ordered to get prior authorization. Re: abnormal EKG, chest pain, BMI: 50. ) Oleksandr Raymond MD [Primary Care Provider] - - Discharge Summary/Plan Comment DC Time >30 min.: No - Patient Data Vitals - Most Recent: Last Vital Signs Temp 36.6 C 02/15/19 01:00 Pulse 56 L 02/15/19 09:45 Resp 20 02/15/19 05:45 BP 176/72 H 02/15/19 09:45 Pulse Ox 96 02/15/19 05:45 Weight - Most Recent: 137.076 kg Lab Results - Last 24 hrs: Laboratory Results - last 24 hr 02/14/19 02/14/19 02/14/19 Range/Units 12:05 12:05 12:05 WBC 7.3 (4.5-12.0) X10-3/uL RBC 4.40 (3.23-5.20) x10(6)uL Hgb 12.0 (11.5-15.5) g/dL Hct 37.2 (30.0-51.3) % MCV 84.6 (80-96) fL MCH 27.2 L (27.7-33.6) pg MCHC 32.1 L (32.2-35.4) g/dL RDW 13.7 (11.5-15.5) % Plt Count 166 (125-369) X10(3)uL MPV 13.0 H (7.4-10.4) fL Neut % (Auto) 57.1 (46-82) % Lymph % (Auto) 33.9 (13-37) % [place] % (Auto) 5.9 (4-12) % Eos % (Auto) 2 (1.0-5.0) % Baso % (Auto) 1 (0-2) % Neut # (Auto) 4.1 (1.6-8.3) # Lymph # (Auto) 2.5 (0.6-5.0) # [place] # (Auto) 0.4 (0.0-1.3) # Eos # (Auto) 0.2 (0.0-0.8) # Baso # (Auto) 0.1 (0.0-0.2) # Sodium 139 (135-145) mmol/L Potassium 3.6 (3.5-5.3) mmol/L Chloride 101 D (100-110) mmol/L Carbon Dioxide 29 (21-32) mmol/L BUN 15 (7-18) mg/dL Creatinine 1.2 H (0.55-1.02) mg/dL Est Cr Clr Drug Dosing 38.69 mL/min Estimated GFR (MDRD) 44 L (>60) BUN/Creatinine Ratio 12.5 (9-20) Glucose 283 H (80-116) mg/dL POC Glucose (80-116) mg/dL Calcium 8.9 (8.6-10.2) mg/dL Troponin I < 0.017 L (<0.017-0.056) ng/mL 02/14/19 02/14/19 02/14/19 Range/Units 15:08 18:13 21:02 WBC (4.5-12.0) X10-3/uL RBC (3.23-5.20) x10(6)uL Hgb (11.5-15.5) g/dL Hct (30.0-51.3) % MCV (80-96) fL MCH (27.7-33.6) pg MCHC (32.2-35.4) g/dL RDW (11.5-15.5) % Plt Count (125-369) X10(3)uL MPV (7.4-10.4) fL Neut % (Auto) (46-82) % Lymph % (Auto) (13-37) % [place] % (Auto) (4-12) % Eos % (Auto) (1.0-5.0) % Baso % (Auto) (0-2) % Neut # (Auto) (1.6-8.3) # Lymph # (Auto) (0.6-5.0) # [place] # (Auto) (0.0-1.3) # Eos # (Auto) (0.0-0.8) # Baso # (Auto) (0.0-0.2) # Sodium (135-145) mmol/L Potassium (3.5-5.3) mmol/L Chloride (100-110) mmol/L Carbon Dioxide (21-32) mmol/L BUN (7-18) mg/dL Creatinine (0.55-1.02) mg/dL Est Cr Clr Drug Dosing mL/min Estimated GFR (MDRD) (>60) BUN/Creatinine Ratio (9-20) Glucose (80-116) mg/dL POC Glucose 290 H 258 H (80-116) mg/dL Calcium (8.6-10.2) mg/dL Troponin I < 0.017 L (<0.017-0.056) ng/mL 02/14/19 02/15/19 02/15/19 Range/Units 21:03 06:12 06:15 WBC (4.5-12.0) X10-3/uL RBC (3.23-5.20) x10(6)uL Hgb (11.5-15.5) g/dL Hct (30.0-51.3) % MCV (80-96) fL MCH (27.7-33.6) pg MCHC (32.2-35.4) g/dL RDW (11.5-15.5) % Plt Count (125-369) X10(3)uL MPV (7.4-10.4) fL Neut % (Auto) (46-82) % Lymph % (Auto) (13-37) % [place] % (Auto) (4-12) % Eos % (Auto) (1.0-5.0) % Baso % (Auto) (0-2) % Neut # (Auto) (1.6-8.3) # Lymph # (Auto) (0.6-5.0) # [place] # (Auto) (0.0-1.3) # Eos # (Auto) (0.0-0.8) # Baso # (Auto) (0.0-0.2) # Sodium (135-145) mmol/L Potassium (3.5-5.3) mmol/L Chloride (100-110) mmol/L Carbon Dioxide (21-32) mmol/L BUN (7-18) mg/dL Creatinine (0.55-1.02) mg/dL Est Cr Clr Drug Dosing mL/min Estimated GFR (MDRD) (>60) BUN/Creatinine Ratio (9-20) Glucose (80-116) mg/dL POC Glucose 150 H D (80-116) mg/dL Calcium (8.6-10.2) mg/dL Troponin I < 0.017 L 0.018 (<0.017-0.056) ng/mL 02/15/19 Range/Units 09:11 WBC (4.5-12.0) X10-3/uL RBC (3.23-5.20) x10(6)uL Hgb (11.5-15.5) g/dL Hct (30.0-51.3) % MCV (80-96) fL MCH (27.7-33.6) pg MCHC (32.2-35.4) g/dL RDW (11.5-15.5) % Plt Count (125-369) X10(3)uL MPV (7.4-10.4) fL Neut % (Auto) (46-82) % Lymph % (Auto) (13-37) % [place] % (Auto) (4-12) % Eos % (Auto) (1.0-5.0) % Baso % (Auto) (0-2) % Neut # (Auto) (1.6-8.3) # Lymph # (Auto) (0.6-5.0) # [place] # (Auto) (0.0-1.3) # Eos # (Auto) (0.0-0.8) # Baso # (Auto) (0.0-0.2) # Sodium (135-145) mmol/L Potassium (3.5-5.3) mmol/L Chloride (100-110) mmol/L Carbon Dioxide (21-32) mmol/L BUN (7-18) mg/dL Creatinine (0.55-1.02) mg/dL Est Cr Clr Drug Dosing mL/min Estimated GFR (MDRD) (>60) BUN/Creatinine Ratio (9-20) Glucose (80-116) mg/dL POC Glucose (80-116) mg/dL Calcium (8.6-10.2) mg/dL Troponin I < 0.017 L (<0.017-0.056) ng/mL Med Orders - Current: Current Medications Acetaminophen (Tylenol) 650 mg PO Q4H PRN PRN Reason: Pain (Mild 1-3)/fever Aspirin (Aspirin) 81 mg PO DAILY [facility] Last Admin: 02/15/19 09:45 Dose: Not Given Diphenhydramine HCl (Benadryl) 25 mg PO TID PRN PRN Reason: Hives Docusate Sodium (Colace) 100 mg PO BID PRN PRN Reason: Constipation Enoxaparin Sodium (Lovenox) 40 mg SUBCUT DAILY [facility] Fluticasone Propionate (Flonase) 0 gm NASBOTH BID PRN PRN Reason: Allergies Furosemide (Lasix) 40 mg PO DAILY PRN PRN Reason: Edema Hydrochlorothiazide (Hydrochlorothiazide) 25 mg PO DAILY [facility] Last Admin: 02/15/19 09:45 Dose: 25 mg Promethazine HCl 6.25 mg/ (Sodium Chloride) 50.25 mls @ 200 mls/hr IV Q6H PRN PRN Reason: Nausea/Vomiting Insulin Glargine (Lantus Solostar) 33 units SUBCUT BEDTIME [facility] Insulin Human Lispro (Humalog) 8 unit SUBCUT TIDMEALS [facility] Last Admin: 02/15/19 09:34 Dose: 8 unit Losartan Potassium (Cozaar) 100 mg PO BEDTIME [facility] Menthol (Perform Pain Reliever) 0 ml TP QID [facility] Last Admin: 02/15/19 09:45 Dose: 89 ml Metformin HCl (Glucophage) 1,000 mg PO BIDMEALS [facility] Last Admin: 02/15/19 09:45 Dose: 1,000 mg Metoprolol Succinate (Toprol Xl) 50 mg PO BID [facility] Last Admin: 02/15/19 09:45 Dose: 50 mg Morphine Sulfate (Morphine) 2 mg IVPUSH Q2H PRN PRN Reason: Pain (severe 7-10) Multivitamins (Thera) 1 each PO DAILY [facility] Last Admin: 02/15/19 09:45 Dose: Not Given Nifedipine (Procardia Xl) 60 mg PO DAILY [facility] Last Admin: 02/15/19 09:45 Dose: 60 mg Nitroglycerin (Nitrostat) 0.4 mg SL Q5M PRN PRN Reason: Chest Pain Ondansetron HCl (Zofran Odt) 4 mg PO Q4H PRN PRN Reason: nausea, able to take PO Pantoprazole Sodium (Protonix) 40 mg PO 0600 [facility] Last Admin: 02/15/19 05:54 Dose: 40 mg Pramipexole Dihydrochloride (Mirapex) 1 mg PO TID PRN PRN Reason: RESTLESS LEGS Rosuvastatin Calcium (Crestor) 20 mg PO DAILY [facility] Last Admin: 02/15/19 09:45 Dose: 20 mg Sodium Chloride (Saline Flush) 10 ml FLUSH ASDIRECTED PRN PRN Reason: Keep Vein Open Sucralfate (Carafate) 1 gm PO TIDAC [facility] Last Admin: 02/15/19 09:45 Dose: Not Given Temazepam (Restoril) 15 mg PO BEDTIME PRN PRN Reason: Sleep Tramadol HCl (Ultram) 50 mg PO TID PRN PRN Reason: Pain Last Admin: 02/15/19 01:06 Dose: 50 mg Triamcinolone Acetonide (Triamcinolone Acetonide 0.1% Crm) 0 gm TOP BID PRN PRN Reason: Rash Discontinued Medications Aspirin (Aspirin) 81 mg PO ONETIME ONE Stop: 02/14/19 18:59 Last Admin: 02/14/19 19:34 Dose: Not Given Aspirin (Aspirin) 324 mg PO ONETIME ONE Stop: 02/14/19 19:02 Last Admin: 02/14/19 19:06 Dose: 324 mg Enoxaparin Sodium (Lovenox) 120 mg SUBCUT Q12H [facility] Last Admin: 02/15/19 06:16 Dose: 120 mg Enoxaparin Sodium (Lovenox) Confirm Administered Dose 80 mg .ROUTE .STK-MED ONE Stop: 02/14/19 19:00 Last Admin: 02/14/19 19:07 Dose: Not Given Enoxaparin Sodium (Lovenox) Confirm Administered Dose 40 mg .ROUTE .STK-MED ONE Stop: 02/14/19 19:00 Last Admin: 02/14/19 19:07 Dose: Not Given Hydrochlorothiazide (Hydrochlorothiazide) 25 mg PO ONETIME ONE Stop: 02/14/19 14:45 Last Admin: 02/14/19 15:24 Dose: 25 mg Magnesium Sulfate 2 gm/ Premix 50 mls @ 150 mls/hr IV ONETIME ONE Stop: 02/14/19 13:07 Last Admin: 02/14/19 13:34 Dose: 150 mls/hr Insulin Glargine (Lantus Solostar) 33 units SUBCUT BEDTIME [facility] Last Admin: 02/14/19 21:15 Dose: 33 units Insulin Human Lispro (Humalog) 8 unit SUBCUT TIDMEALS [facility] Last Admin: 02/14/19 19:07 Dose: 8 units Losartan Potassium (Cozaar) 100 mg PO BEDTIME [facility] Last Admin: 02/14/19 21:14 Dose: 100 mg Metoprolol Succinate (Toprol Xl) 75 mg PO BEDTIME GRUPO Nifedipine (Procardia Xl) 60 mg PO ONETIME ONE Stop: 02/14/19 14:44 Last Admin: 02/14/19 15:24 Dose: 60 mg - Exam General: Reports: Alert, Oriented, Cooperative, No Acute Distress Neck: Reports: Supple, Trachea Midline Lungs: Reports: Clear to Auscultation, Normal Respiratory Effort Cardiovascular: Reports: Regular Rate, Regular Rhythm, No Murmurs GI/Abdominal Exam: Normal Bowel Sounds, Soft, Non-Tender, No Distention Extremities: Pedal Edema, Arm Pain (TTP along left scapula, TTP at base of skull & cervical paraspinal mm, bilateral neck.), Other (stasis dermatitis) Skin: Reports: Warm, Dry, Intact EKG INTERPRETATION EKG Date: 02/15/19 Time: 08:11 Rhythm: NSR Rate (Beats/Min): 53 [place]: LAD-Left [place] Deviation P-Wave: Present (144) QRS: Other (QRS 114) ST-T: Normal QT: Normal (QTc 476) Comparison: No Change EKG Interpretation Comments: Sinus rhythm, borderline left ventricular hypertrophy(morbid obese patient), No ST-T wave changes. No T wave inversions. No signs of ischemia. Abnormal EKG.
[2019-02-15 11:44] VITALS: BP 176/73; PULSE 53
[2019-02-15] MEDS ORDERED: Losartan 100 MG Tab PO SCH (21:00)
[2019-02-16] MEDS ORDERED: Enoxaparin 40 MG/0.4 ML Syringe SUBCUT SCH (09:00)
== END 2019-02-15 12:20 | disposition home or self-care (01) ==
LOC: FB.ED 11:55 → FB.MS 15:56
PROVIDERS: ADMIT Family Medicine; ATTEND Family Medicine
DX: R07.89 Other chest pain (principal); K29.50 Unspecified chronic gastritis without bleeding; I10 Essential (primary) hypertension; E11.9 Type 2 diabetes mellitus without complications; E78.5 Hyperlipidemia, unspecified; E66.01 Morbid (severe) obesity due to excess calories; J44.9 Chronic obstructive pulmonary disease, unspecified; G51.0 Bell's palsy; Z88.6 Allergy status to analgesic agent; Z88.8 Allergy status to other drugs, medicaments and biological substances; Z91.018 Allergy to other foods; Z88.1 Allergy status to other antibiotic agents; Z79.4 Long term (current) use of insulin; Z79.82 Long term (current) use of aspirin; Z79.899 Other long term (current) drug therapy; Z68.43 Body mass index [BMI] 50.0-59.9, adult
CPT/HCPCS: 36415; 80048; 82962; 84484; 85025; 93005; 96365; 96372; 99285; A9270; G0378; J1650; J1815; J3475; 99284

== ENCOUNTER 2020-01-22 06:38 | Day surgery (SDC) | payer MEDICARE, OTHER ==
[2020-01-22] MEDS ORDERED: fentaNYL 100 MCG/2 ML SDV IV ONE (06:39)
[2020-01-22] MEDS ORDERED: Midazolam 1 MG/ML 2 ML SDV IV ONE (06:39)
[2020-01-22] MEDS ORDERED: Sodium Chloride 0.9% 10 ML Syringe FLUSH PRN (06:45)
[2020-01-22] MEDS ORDERED: Lactated Ringers 1,000 ML IV SCH (06:45)
[2020-01-22] MEDS ORDERED: acetaZOLAMIDE 500 MG Cap.ER PO ONE (08:30)
[2020-01-22 11:07] VITALS: BP 158/52; PULSE 54
--- NOTE | 2020-01-22 12:14 | OR ---
DATE OF OPERATION: 01/22/2020 SURGEON: Britt Yin MD PREOPERATIVE DIAGNOSIS: Visually significant cataract, left eye. POSTOPERATIVE DIAGNOSIS: Visually significant cataract, left eye. PROCEDURES PERFORMED: Phacoemulsification with intraocular lens placement, left eye. ASSISTANTS: None. ANESTHESIA: Local with sedation. COMPLICATIONS: None. BLOOD LOSS: None. IMPLANTS: An John [id number], 21.5 diopter lens implanted. CDE: 3.58. DESCRIPTION OF PROCEDURE: After risks and benefits were reviewed with the patient, consent was obtained in the preoperative area, and the operative eye was marked with a surgical pen. In the preoperative area, a pledget was used to dilate the pupil consisting of a mixture of phenylephrine 10%, cyclopentolate 2%, moxifloxacin 0.5%, and bupivacaine 0.75%. The patient was taken to the operating room, where a time-out was performed, and the patient was placed under monitored anesthesia care. Topical tetracaine was used for anesthesia. The operative eye was prepped and draped for ophthalmic surgery, and the microscope was brought into position and focused. A paracentesis incision was made, followed by injection of preservative-free 1% lidocaine into the anterior chamber, followed by injection of Viscoat into the anterior chamber. A microkeratome blade was used to make a corneal limbal incision temporally. A cystotome was used to make the beginning of the capsulorrhexis, which was carried around 360 degrees in a curvilinear fashion using Utrata forceps. A Friend cannula with BSS was used to hydrodissect and hydrodelineate the nucleus. The nucleus was removed in a divide and conquer manner using phacoemulsification. Irrigation and aspiration were used to remove the remaining cortical material. Provisc was used to inflate the capsular bag, and a pre-loaded John [id number], 21.5 diopter lens, serial number [id number] was injected into the capsular bag. A Sinskey hook was used to position and center the lens. Next, irrigation and aspiration was used to remove any remaining viscoelastic and cortical material from the anterior chamber. BSS on a cannula was used to inflate the anterior chamber and hydrate the wound. The wound was checked and found to be watertight. 1 mg of Moxifloxacin was injected into the anterior chamber. Drapes were removed and the eye was cleaned. A drop of brimonidine 0.15% and a drop of TobraDex was placed. The eye was shielded, and the patient was taken to the recovery room in stable condition. /[id number] DOROTEO/VALARIE CC: SHANEL LEIVA FNP MTDD
== END 2020-01-22 09:20 | disposition home or self-care (01) ==
LOC: FB.SDS 06:38
PROVIDERS: ATTEND Ophthalmology
DX: E11.36 Type 2 diabetes mellitus with diabetic cataract (principal); H25.812 Combined forms of age-related cataract, left eye; E11.3292 Type 2 diabetes mellitus with mild nonproliferative diabetic retinopathy without macular edema, left eye; H02.831 Dermatochalasis of right upper eyelid; H02.834 Dermatochalasis of left upper eyelid; H43.812 Vitreous degeneration, left eye; I11.0 Hypertensive heart disease with heart failure; I50.32 Chronic diastolic (congestive) heart failure; E78.00 Pure hypercholesterolemia, unspecified; I25.84 Coronary atherosclerosis due to calcified coronary lesion; E66.01 Morbid (severe) obesity due to excess calories; F41.1 Generalized anxiety disorder; F33.0 Major depressive disorder, recurrent, mild; K21.9 Gastro-esophageal reflux disease without esophagitis; I25.10 Atherosclerotic heart disease of native coronary artery without angina pectoris; Z79.899 Other long term (current) drug therapy; Z88.1 Allergy status to other antibiotic agents; Z96.1 Presence of intraocular lens; Z88.8 Allergy status to other drugs, medicaments and biological substances; Z91.048 Other nonmedicinal substance allergy status; Z79.82 Long term (current) use of aspirin; Z68.43 Body mass index [BMI] 50.0-59.9, adult; E11.65 Type 2 diabetes mellitus with hyperglycemia
CPT/HCPCS: 00142-QZ; A9270-GY; J2250; J3010; J7120; V2632

== ENCOUNTER 2020-02-15 10:03 | Emergency (ER) | payer MEDICARE, OTHER ==
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
[2020-02-15] MEDS: Furosemide 40 MG/4 ML VIAL IVPUSH ONE (11:28)
[2020-02-15] MEDS: Sodium Chloride 0.9% 10 ML Syringe FLUSH PRN (11:34)
--- NOTE | 2020-02-15 11:49 | CR ---
INDICATION: Short of breath. CHEST, TWO VIEWS: AP and two lateral views of the chest were obtained 02/15/20 and compared with 01/10/19 and 02/14/15. The heart is enlarged compared with previous examinations. Upper lung field pulmonary vasculature is somewhat prominent suggesting CHF of mild degree. A definite consolidating pneumonia was not identified. However, there is patchy density at the bases posteriorly making it impossible to exclude patchy pneumonia. There is also blunting of the posterior sulci which may represent some minimal pleural effusions and raising question of pneumonia and pleuritis bibasilar. Prominent AP diameter and hyperaeration also raise question of COPD. Degenerative changes are noted with hypertrophic lipping off vertebral bodies anteriorly and degenerative disc disease at two lower thoracic levels, apparently T10-11, T11-T12. Findings compatible with exogenous obesity are noted. IMPRESSION: 1. Progressive ASHD with cardiomegaly and probable mild CHF. No definite edema. 2. Heavy markings posteriorly with small bilateral pleural effusions suggested raising question of minimal pneumonia and pleuritis at the lung bases. 3. Mild dextroconvex scoliosis lower middle thoracic spine with hypertrophic degenerative changes and disc disease in the lower thoracic spine. 4. Possible COPD - correlate clinically. 5. Exogenous obesity. MTDD
[2020-02-15] MEDS: Aspirin 81 MG Tab.Chew PO ONE (13:06)
[2020-02-15 16:33] VITALS: BP 193/64; PULSE 60
== END 2020-02-15 13:21 | disposition home or self-care (01) ==
LOC: FB.ED 10:03
DX: I11.0 Hypertensive heart disease with heart failure (principal); I50.9 Heart failure, unspecified; K21.9 Gastro-esophageal reflux disease without esophagitis; J44.9 Chronic obstructive pulmonary disease, unspecified; E11.42 Type 2 diabetes mellitus with diabetic polyneuropathy; G43.909 Migraine, unspecified, not intractable, without status migrainosus; E66.9 Obesity, unspecified; Z90.49 Acquired absence of other specified parts of digestive tract; Z90.710 Acquired absence of both cervix and uterus; Z88.6 Allergy status to analgesic agent; Z91.018 Allergy to other foods; Z91.09 Other allergy status, other than to drugs and biological substances; Z88.1 Allergy status to other antibiotic agents; Z88.8 Allergy status to other drugs, medicaments and biological substances; Z79.82 Long term (current) use of aspirin; Z79.4 Long term (current) use of insulin; Z79.899 Other long term (current) drug therapy; Z79.02 Long term (current) use of antithrombotics/antiplatelets; Z68.42 Body mass index [BMI] 45.0-49.9, adult
CPT/HCPCS: 36415; 71046; 80053; 83880; 84484; 85025; 86140; 93005; 96374; 99284; 99285-25; J1940

== ENCOUNTER 2020-04-25 20:48 | Emergency (ER) | payer MEDICARE, OTHER ==
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
[2020-04-26] MEDS ORDERED: Gabapentin 100 MG Cap PO ONE (00:56)
[2020-04-26] MEDS ORDERED: Gabapentin 100 MG Cap ONE (00:59)
[2020-04-26 01:07] VITALS: BP 156/57; PULSE 71
== END 2020-04-26 01:45 | disposition home or self-care (01) ==
LOC: FB.ED 20:48
DX: S40.012A Contusion of left shoulder, initial encounter (principal); M47.816 Spondylosis without myelopathy or radiculopathy, lumbar region; R60.0 Localized edema; E11.43 Type 2 diabetes mellitus with diabetic autonomic (poly)neuropathy; K31.84 Gastroparesis; I25.10 Atherosclerotic heart disease of native coronary artery without angina pectoris; I11.0 Hypertensive heart disease with heart failure; I50.9 Heart failure, unspecified; E78.00 Pure hypercholesterolemia, unspecified; J44.9 Chronic obstructive pulmonary disease, unspecified; K21.9 Gastro-esophageal reflux disease without esophagitis; I44.4 Left anterior fascicular block; E66.9 Obesity, unspecified; Z68.43 Body mass index [BMI] 50.0-59.9, adult; Z79.01 Long term (current) use of anticoagulants; Z79.02 Long term (current) use of antithrombotics/antiplatelets; Z88.8 Allergy status to other drugs, medicaments and biological substances; Z91.018 Allergy to other foods; Z88.1 Allergy status to other antibiotic agents; Z91.048 Other nonmedicinal substance allergy status; Z79.899 Other long term (current) drug therapy; Z79.4 Long term (current) use of insulin; Z79.82 Long term (current) use of aspirin; W22.8XXA Striking against or struck by other objects, initial encounter
CPT/HCPCS: 36415; 51702; 70450; 72125; 72131; 72192; 73030-LT; 80053; 81001; 83735; 84484; 85025; 86140; 87086; 93005; 93010; 99284; 99285-25; A9270-GY

== ENCOUNTER 2020-04-26 20:57 | Emergency (ER) | payer MEDICARE, OTHER ==
[2020-04-26] MEDS ORDERED: Cyclobenzaprine 10 MG Tab PO ONE (20:58)
[2020-04-26] MEDS ORDERED: Ketorolac 30 MG/ML SDV IM STA (21:24)
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
[2020-04-30 00:31] VITALS: BP 194/56; PULSE 78
== END 2020-04-26 22:35 | disposition home or self-care (01) ==
LOC: FB.ED 20:57
DX: M25.512 Pain in left shoulder (principal); E11.42 Type 2 diabetes mellitus with diabetic polyneuropathy; I25.10 Atherosclerotic heart disease of native coronary artery without angina pectoris; I11.0 Hypertensive heart disease with heart failure; I50.9 Heart failure, unspecified; E78.00 Pure hypercholesterolemia, unspecified; J44.9 Chronic obstructive pulmonary disease, unspecified; K21.9 Gastro-esophageal reflux disease without esophagitis; M19.90 Unspecified osteoarthritis, unspecified site; E11.43 Type 2 diabetes mellitus with diabetic autonomic (poly)neuropathy; K31.84 Gastroparesis; F41.9 Anxiety disorder, unspecified; F32.9 Major depressive disorder, single episode, unspecified; E66.9 Obesity, unspecified; Z79.01 Long term (current) use of anticoagulants; Z79.02 Long term (current) use of antithrombotics/antiplatelets; Z79.899 Other long term (current) drug therapy; Z88.8 Allergy status to other drugs, medicaments and biological substances; Z91.018 Allergy to other foods; Z88.1 Allergy status to other antibiotic agents; Z91.048 Other nonmedicinal substance allergy status; Z79.4 Long term (current) use of insulin; Z79.82 Long term (current) use of aspirin
CPT/HCPCS: 96372; 99283; A9270; J1885

== ENCOUNTER 2020-05-03 12:13 | Emergency (ER) | payer MEDICARE, OTHER ==
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
[2020-05-03] MEDS: Gabapentin 300 MG Cap PO ONE (16:59)
[2020-05-03] MEDS: Potassium Chloride 20 MEQ Tab.ER PO ONE (16:59)
[2020-05-03] MEDS: Cyclobenzaprine 10 MG Tab PO ONE (16:59)
[2020-05-03 17:27] VITALS: BP 168/76; PULSE 78
== END 2020-05-03 15:48 | disposition home or self-care (01) ==
LOC: FB.ED 12:13
DX: M51.36 Other intervertebral disc degeneration, lumbar region (principal); M47.816 Spondylosis without myelopathy or radiculopathy, lumbar region; E11.42 Type 2 diabetes mellitus with diabetic polyneuropathy; I11.0 Hypertensive heart disease with heart failure; I50.9 Heart failure, unspecified; E78.00 Pure hypercholesterolemia, unspecified; I25.10 Atherosclerotic heart disease of native coronary artery without angina pectoris; K21.9 Gastro-esophageal reflux disease without esophagitis; E66.9 Obesity, unspecified; Z91.018 Allergy to other foods; Z88.1 Allergy status to other antibiotic agents; Z88.8 Allergy status to other drugs, medicaments and biological substances; Z95.5 Presence of coronary angioplasty implant and graft; Z79.4 Long term (current) use of insulin; Z79.02 Long term (current) use of antithrombotics/antiplatelets; Z79.899 Other long term (current) drug therapy
CPT/HCPCS: 36415; 80053; 85025; 99283; 99284

== ENCOUNTER 2020-05-04 14:08 | Emergency (ER) | payer MEDICARE, OTHER ==
[2020-05-04] MEDS ORDERED: Cyclobenzaprine 10 MG Tab PO ONE ×2 (14:09→15:00)
[2020-05-04] MEDS ORDERED: predniSONE 20 MG Tab PO ONE (14:09)
[2020-05-04] MEDS ORDERED: Gabapentin 300 MG Cap PO ONE (15:00)
[2020-05-04] MEDS ORDERED: Lactated Ringers 1,000 ML IV SCH (15:00)
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
[2020-05-04] MEDS ORDERED: NIFEdipine 60 MG Tab.ER PO ONE (15:18)
[2020-05-04] MEDS ORDERED: Losartan 100 MG Tab PO STA (15:19)
[2020-05-04] MEDS ORDERED: Furosemide 40 MG Tab PO ONE (15:19)
[2020-05-04] MEDS ORDERED: Metoprolol Succinate 50 MG Tab.ER PO ONE (15:20)
[2020-05-04] MEDS ORDERED: Clopidogrel 75 MG Tab PO ONE (15:20)
[2020-05-04] MEDS ORDERED: methylPREDNISolone Sodium Succinate 125 MG/2 ML SDV IV ONE (15:30)
[2020-05-04] MEDS ORDERED: cloNIDine 0.1 MG Tab PO ONE (17:06)
[2020-05-04 19:32] VITALS: BP 173/80; PULSE 93
== END 2020-05-04 19:57 | disposition home or self-care (01) ==
LOC: FB.ED 14:08
DX: M47.816 Spondylosis without myelopathy or radiculopathy, lumbar region (principal); M51.36 Other intervertebral disc degeneration, lumbar region; M62.830 Muscle spasm of back; I25.10 Atherosclerotic heart disease of native coronary artery without angina pectoris; E78.00 Pure hypercholesterolemia, unspecified; I11.0 Hypertensive heart disease with heart failure; I50.9 Heart failure, unspecified; J44.9 Chronic obstructive pulmonary disease, unspecified; K21.9 Gastro-esophageal reflux disease without esophagitis; M19.90 Unspecified osteoarthritis, unspecified site; E66.9 Obesity, unspecified; Z68.43 Body mass index [BMI] 50.0-59.9, adult; E11.42 Type 2 diabetes mellitus with diabetic polyneuropathy; E11.43 Type 2 diabetes mellitus with diabetic autonomic (poly)neuropathy; K31.84 Gastroparesis; Z79.02 Long term (current) use of antithrombotics/antiplatelets; Z79.899 Other long term (current) drug therapy; Z79.82 Long term (current) use of aspirin; Z79.4 Long term (current) use of insulin; Z88.6 Allergy status to analgesic agent; Z88.1 Allergy status to other antibiotic agents; Z88.8 Allergy status to other drugs, medicaments and biological substances; Z91.048 Other nonmedicinal substance allergy status; Z91.013 Allergy to seafood; G25.81 Restless legs syndrome
CPT/HCPCS: 36410; 36415; 80053; 96374; 99283; 99284-25; A9270-GY; J2930; J7120; J7512

== ENCOUNTER 2020-11-24 09:36 | Emergency (ER) | payer MEDICARE, OTHER ==
[2020-11-24] MEDS ORDERED: Ketorolac 30 MG/ML SDV IM ONE (10:12)
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
[2020-11-24] MEDS ORDERED: Ketorolac 30 MG/ML SDV ONE (10:28)
--- NOTE | 2020-11-24 11:23 | CR ---
INDICATION: Pain. LEFT KNEE: An AP and two lateral images of the left knee were obtained 11/24/20 - no comparisons. Severe changes of osteoarthritis are noted with medial femorotibial joint space loss and patellofemoral joint space loss. Hypertrophic spurring is prominent in the intercondylar notch and spines and at the patellofemoral joint and to a lesser extent medially at the tibia. Overall demineralization is noted compatible with osteoporosis. Visualization is somewhat limited due to patient's exogenous obesity. A definite acute fracture or dislocation was not seen. IMPRESSION: 1. Fairly severe degree of osteoarthritis is noted. 2. Demineralization is suggested. MTDD
[2020-11-24 11:35] VITALS: BP 169/69; PULSE 50
== END 2020-11-24 13:30 | disposition home or self-care (01) ==
LOC: FB.ED 09:36
DX: M17.12 Unilateral primary osteoarthritis, left knee (principal); I25.10 Atherosclerotic heart disease of native coronary artery without angina pectoris; E78.00 Pure hypercholesterolemia, unspecified; I11.0 Hypertensive heart disease with heart failure; I50.9 Heart failure, unspecified; E11.43 Type 2 diabetes mellitus with diabetic autonomic (poly)neuropathy; K31.84 Gastroparesis; E11.40 Type 2 diabetes mellitus with diabetic neuropathy, unspecified; E66.9 Obesity, unspecified; Z95.5 Presence of coronary angioplasty implant and graft; Z68.43 Body mass index [BMI] 50.0-59.9, adult; Z79.82 Long term (current) use of aspirin; Z79.4 Long term (current) use of insulin; Z79.899 Other long term (current) drug therapy; Z91.018 Allergy to other foods; Z88.1 Allergy status to other antibiotic agents; Z88.8 Allergy status to other drugs, medicaments and biological substances; Z91.048 Other nonmedicinal substance allergy status
CPT/HCPCS: 73560-LT; 96372; 99283; 99284-25; J1885

== ENCOUNTER 2020-11-26 10:08 | Observation (INO) | payer MEDICARE, OTHER, MEDICAID ==
[2020-11-26] MEDS ORDERED: Sodium Chloride 0.9% 500 ML IV ONE (10:28)
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
[2020-11-26] MEDS: Sodium Chloride 0.9% 10 ML Syringe FLUSH PRN (11:29)
[2020-11-26] MEDS ORDERED: Clopidogrel 75 MG Tab PO ONE (12:05)
[2020-11-26] MEDS ORDERED: Metoprolol Succinate 50 MG Tab.ER PO ONE (12:06)
[2020-11-26] MEDS ORDERED: Losartan 100 MG Tab PO ONE (12:06)
[2020-11-26] MEDS ORDERED: Furosemide 40 MG/4 ML VIAL IVPUSH ONE (13:49)
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
[2020-11-26] MEDS: Acetaminophen 500 MG Tab *PTOM PO SCH ×2 (16:15→21:34)
[2020-11-26] MEDS: Ibuprofen 200 MG Tab PO SCH ×2 (16:15→21:34)
[2020-11-26] MEDS: Nystatin Topical Powder 15 GM Bottle TOP SCH ×2 (16:22→21:34)
[2020-11-26] MEDS ORDERED: NIFEDIPINE 60 MG PO ONE (17:15)
[2020-11-26] MEDS: traMADol 50 MG Tab PO PRN (17:19)
[2020-11-26] MEDS ORDERED: INSULIN ASPART 100 UNIT/ML SQ SCH (18:00)
[2020-11-26] MEDS ORDERED: LEVEMIR 100 UNIT/ML SQ SCH (21:00)
[2020-11-26] MEDS: Gabapentin 100 MG Cap *PTOM PO SCH (21:33)
[2020-11-26] MEDS: Furosemide 40 MG/4 ML VIAL IVPUSH SCH (21:37)
[2020-11-26] MEDS: Metoprolol Succinate 50 MG Tab.ER *PTOM PO SCH (21:45)
[2020-11-26] MEDS ORDERED: Pramipexole 0.25 MG Tab ONE (22:23)
[2020-11-27] MEDS: traMADol 50 MG Tab PO PRN (00:02)
[2020-11-27] MEDS: Ibuprofen 200 MG Tab PO SCH ×2 (03:23→09:02)
[2020-11-27] MEDS: Acetaminophen 500 MG Tab *PTOM PO SCH ×2 (03:24→09:04)
[2020-11-27] MEDS ORDERED: Pantoprazole 40 MG Tab.CR *PTOM PO SCH (06:00)
[2020-11-27] MEDS ORDERED: INSULIN ASPART 100 UNIT/ML SQ SCH (08:00)
[2020-11-27] MEDS: Metoprolol Succinate 50 MG Tab.ER *PTOM PO SCH (08:51)
[2020-11-27] MEDS: Furosemide 40 MG/4 ML VIAL IVPUSH SCH (08:53)
[2020-11-27] MEDS: Sodium Chloride 0.9% 10 ML Syringe FLUSH PRN (08:57)
[2020-11-27] MEDS ORDERED: Losartan 100 MG Tab *PTOM PO SCH (09:00)
[2020-11-27] MEDS ORDERED: Isosorbide Mononitrate 60 MG Tab.ER *PTOM PO SCH (09:00)
[2020-11-27] MEDS ORDERED: ROSUVASTATIN 40 MG PO SCH (09:00)
[2020-11-27] MEDS ORDERED: Clopidogrel 75 MG Tab *PTOM PO SCH (09:00)
[2020-11-27] MEDS ORDERED: Non-Formulary Medication 1 Each (Multivitamin With Minerals [Multiple Vitamin] 1 EACH Tabl PO SCH (09:00)
[2020-11-27] MEDS: Nystatin Topical Powder 15 GM Bottle TOP SCH (09:01)
[2020-11-27] MEDS: Gabapentin 100 MG Cap *PTOM PO SCH (09:01)
[2020-11-27 09:05] VITALS: BP 159/40; PULSE 57
[2020-11-27] MEDS ORDERED: NIFEDIPINE 60 MG PO SCH (12:00)
--- NOTE | 2020-11-27 14:56 | PCM.DCSUM1 ---
Discharge Summary - Hospital Course HPI Initial Comments: Adilia presented to ER today by ambulance as she has not been able to transfer to the toilet at home due to left knee pain. She was seen in ER on 11/24 for worsening left knee pain for 3 months, x-ray showed osteoarthritis, [id number]. She was discharged home, advised to continue Tramadol & Gabapentin, add Ibuprofen or Aleve as needed. She went home, was unable to bear weight, pain with any movement. She has been sitting in her chair for past 2 day s. She intentionally withheld oral fluids so we would not have to urinate and also held her stool so she wouldn't soil herself. She last urinated and had stool on 11/24. She is Diabetic, had neighbor help make her meals, BS have been well controlled. She has a glucose sensor on her abdomen. She has been short of breath but denies wheezing. She has been in contact with Phil Cruz, psychotherapist social worker in [facility] to assist admission to [facility]. She has open sore on back of her left calf & left heel, states she got sore on heel from crawling around on the floor. States rash under abdomen is not itching. No fevers, chills, sore throat. No chest pain. Urinary retention but denies any dysuria or frequency. She is fully vaccinated for COVID. [facility] is accepting her for admission tomorrow. Diagnosis: Stroke: No - Discharge Data Discharge Date: 11/27/20 ([facility]) Discharge Disposition: DC/Tfer to SNF 03 Condition: Good - Referral to Home Health Date of Face to Face Encounter: 11/27/20 Reason for Homebound Status: [facility] resident Primary Care Physician: Oleksandr Raymond MD Skilled Need: custodial - Discharge Diagnosis/Problem(s) (1) Hypertensive urgency SNOMED Code(s): 417259318 ICD Code: I16.0 - HYPERTENSIVE URGENCY Status: Resolved (2) CHF exacerbation SNOMED Code(s): 440435303, 92258436270847 ICD Code: I50.9 - HEART FAILURE, UNSPECIFIED Status: Acute Problem Details: improving Qualifiers: Heart failure type: unspecified Qualified Code(s): I50.9 - Heart failure, unspecified (3) Unable to ambulate SNOMED Code(s): 704926684 ICD Code: R26.2 - DIFFICULTY IN WALKING, NOT ELSEWHERE CLASSIFIED Status: Acute (4) Weakness SNOMED Code(s): 29885458 ICD Code: R53.1 - WEAKNESS Status: Acute (5) Urinary retention SNOMED Code(s): 953302260 ICD Code: R33.9 - RETENTION OF URINE, UNSPECIFIED Status: Resolved (6) Mild dehydration SNOMED Code(s): 7440170563312 ICD Code: E86.0 - DEHYDRATION Status: Resolved (7) Osteoarthritis of left knee SNOMED Code(s): 295972280894075 ICD Code: M17.12 - UNILATERAL PRIMARY OSTEOARTHRITIS, LEFT KNEE Status: Chronic Qualifiers: Osteoarthritis type: primary Qualified Code(s): M17.12 - Unilateral primary osteoarthritis, left knee (8) Stage 1 decubitus ulcer in diabetic patient SNOMED Code(s): 659223984 ICD Code: E11.622 - TYPE 2 DIABETES MELLITUS WITH OTHER SKIN ULCER; L89.91 - PRESSURE ULCER OF UNSPECIFIED SITE, STAGE 1 Status: Chronic Problem Details: right posterior calf, Alleyvn dressing (9) Hattie infection of genital region SNOMED Code(s): 629517255 ICD Code: B37.49 - OTHER UROGENITAL CANDIDIASIS Status: Acute (10) Chronic gastritis SNOMED Code(s): 8673989 ICD Code: K29.50 - UNSPECIFIED CHRONIC GASTRITIS WITHOUT BLEEDING Status: Chronic Onset Date: 12/14/13 (11) Degeneration of lumbar intervertebral disc SNOMED Code(s): 88288315 ICD Code: M51.36 - OTHER INTERVERTEBRAL DISC DEGENERATION, LUMBAR REGION Status: Chronic (12) Degenerative arthritis of lumbar spine Status: Chronic Qualifiers: Spinal osteoarthritis complication: unspecified spinal osteoarthritis Qualified Code(s): M47.816 - Spondylosis without myelopathy or radiculopathy, lumbar region (13) Diabetes mellitus type 2 SNOMED Code(s): 78156297 ICD Code: E11.9 - TYPE 2 DIABETES MELLITUS WITHOUT COMPLICATIONS Status: Chronic Onset Date: 12/03/13 (14) Gastroesophageal reflux disease SNOMED Code(s): 123905725 ICD Code: K21.9 - GASTRO-ESOPHAGEAL REFLUX DISEASE WITHOUT ESOPHAGITIS Status: Chronic Onset Date: 12/03/13 (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 SNOMED Code(s): 997739745 ICD Code: Z86.69 - PERSONAL HISTORY OF DIS OF THE NERVOUS SYS AND SENSE ORGANS Status: Chronic (16) Hypertension SNOMED Code(s): 20311915 ICD Code: I10 - ESSENTIAL (PRIMARY) HYPERTENSION Status: Chronic Qualifiers: Hypertension type: essential hypertension Qualified Code(s): I10 - Essential (primary) hypertension (17) Peripheral edema SNOMED Code(s): 247960038 ICD Code: R60.9 - EDEMA, UNSPECIFIED Status: Chronic (18) Transient ischemic attack (TIA) SNOMED Code(s): 958769302 ICD Code: G45.9 - TRANSIENT CEREBRAL ISCHEMIC ATTACK, UNSPECIFIED Status: Chronic - Patient Summary/Data Consults: Consultations 11/26/20 13:44 Consult to Case Management/Production Control Specialist [CONS] Routine Comment: Physician Instructions: Service(s) to be Consulted: Case Management Case Management Specialty/Production Control Specialist: Residential Plumber Special Instructions: Discharge to Major Hospital Course: Adilia had Han placed once reached floor, IV Lasix 40 mg given and repeat at bedtime and again this morning, urine output was 3450 ml since admission, weight 366 lbs by bed scale on admission. Wounds on left calf, heel were covered with Allevyn dressings. Her systolic blood pressure was extremely high when reached floor 219, had missed her home Imdur and Procardia, Metoprolol & Losartan were given in ER. Immediate release Imdur was ordered and home dose resumed this morning. Procardia 60 mg given on admit and morning dose was pushed back for today. Her blood pressures came down to 159/40 this morning prior to medications. Will discharge her on equivalent dose of Torsemide 10 mg bid at 08,14 to help continue diuresis. Potassium 4.0 today, will have her recheck in [address] Raymond to see if she needs supplementation as she is already on Losartan. Her Creatinine improved to 1.2. Sodium bumped to 146, Chloride 111. Tylenol 500 mg/Ibuprofen 200 mg q6h was started in addition to her home Tramadol & Gabapentin doses, improved pain. She did not ambulate to bathroom but used bed stratton once Han was removed & for bowel movement. Her blood sugars were well controlled on home regiment. Will be discharged to [facility] today at 11am. - Patient Instructions Diet: Diabetic Diet Activity: As Tolerated Driving: Do Not Drive Other/Special Instructions: Follow up with Dr Raymond in 1 week, recheck potassium. - Discharge Plan *PRESCRIPTION DRUG MONITORING PROGRAM REVIEWED*: No *COPY OF PRESCRIPTION DRUG MONITORING REPORT IN PATIENT RENATO: Not Applicable Prescriptions/Med Rec: Losartan [Cozaar] 100 mg PO DAILY #14 tab Rosuvastatin [Crestor] 40 mg PO DAILY #14 tab Isosorbide Mononitrate [Imdur] 60 mg PO DAILY #14 tab Insulin Detemir [Levemir Flextouch] 36 units SQ BEDTIME #1 box Pramipexole [Mirapex] 1 mg PO BID PRN #28 tab PRN Reason: Other Ibuprofen [Motrin] 200 mg PO Q6H 14 Days #56 tablet Multivitamin with Minerals [Multiple Vitamin] 1 tab PO DAILY #14 tab Gabapentin [Neurontin] 200 mg PO BID 14 Days #56 cap Insulin Aspart [NovoLOG] 11 units SQ 1800 #1 box Insulin Aspart [NovoLOG] 9 units SQ 0800,1200 #1 box Nystatin [Nystop] 1 gm TOP QID #1 bottle Clopidogrel [Plavix] 75 mg PO DAILY #14 tab Pantoprazole [ProTONIX] 40 mg PO 0600 #14 tab Torsemide 10 mg PO BID@08,14 14 Days #28 tablet Acetaminophen [Tylenol Extra Strength] 500 mg PO Q6H 14 Days #56 tablet traMADol [Ultram] 50 mg PO TID PRN 14 Days #42 tab PRN Reason: Pain Home Medications: Home Meds Metoprolol Succinate [Toprol XL] 50 mg PO BID 04/17/14 [History] NIFEdipine [Nifedipine ER] 60 mg PO DAILY 04/17/14 [History] Acetaminophen [Tylenol Extra Strength] 500 mg PO Q6H 14 Days #56 tablet 11/27/20 [Rx] Clopidogrel [Plavix] 75 mg PO DAILY #14 tab 11/27/20 [Rx] Gabapentin [Neurontin] 200 mg PO BID 14 Days #56 cap 11/27/20 [Rx] Ibuprofen [Motrin] 200 mg PO Q6H 14 Days #56 tablet 11/27/20 [Rx] Insulin Aspart [NovoLOG] 9 units SQ 0800,1200 #1 box 11/27/20 [Rx] Insulin Aspart [NovoLOG] 11 units SQ 1800 #1 box 11/27/20 [Rx] Insulin Detemir [Levemir Flextouch] 36 units SQ BEDTIME #1 box 11/27/20 [Rx] Isosorbide Mononitrate [Imdur] 60 mg PO DAILY #14 tab 11/27/20 [Rx] Losartan [Cozaar] 100 mg PO DAILY #14 tab 11/27/20 [Rx] Multivitamin with Minerals [Multiple Vitamin] 1 tab PO DAILY #14 tab 11/27/20 [Rx] Nystatin [Nystop] 1 gm TOP QID #1 bottle 11/27/20 [Rx] Pantoprazole [ProTONIX] 40 mg PO 0600 #14 tab 11/27/20 [Rx] Pramipexole [Mirapex] 1 mg PO BID PRN #28 tab 11/27/20 [Rx] Rosuvastatin [Crestor] 40 mg PO DAILY #14 tab 11/27/20 [Rx] Torsemide 10 mg PO BID@08,14 14 Days #28 tablet 11/27/20 [Rx] traMADol [Ultram] 50 mg PO TID PRN 14 Days #42 tab 11/27/20 [Rx] Oxygen Therapy Mode: Room Air Patient Handouts: Venous Thromboembolism Prevention Forms: ED Department Discharge Referrals: Oleksandr Raymond MD [Primary Care Provider] - - Discharge Summary/Plan Comment DC Time >30 min.: No - General Info Date of Service: 11/27/20 Subjective Update: Adilia states she feels a lot better, pain controlled. Her hands and feet feel less puffy/swollen. No shortness of breath, chest pain. Had large bowel movement. Guille was pulled overnight, has urinated 3 times since it was removed. - Patient Data Vitals - Most Recent: Last Vital Signs Temp 97.9 F 11/27/20 08:20 Pulse 57 L 11/27/20 08:51 Resp 18 11/27/20 08:20 BP 159/40 H 11/27/20 08:59 Pulse Ox 95 11/27/20 08:20 Weight - Most Recent: 366 lb 12.8 oz I&O - Last 24 hours: Intake & Output 11/26/20 11/27/20 11/27/20 22:59 06:59 14:59 Intake Total 650 Output Total 1150 2300 Balance -1150 -1650 Lab Results - Last 24 hrs: Laboratory Results - last 24 hr 11/26/20 11/27/20 Range/Units 21:30 06:15 Sodium 146 H (135-145) mmol/L Potassium 4.0 (3.5-5.3) mmol/L Chloride 111 H (100-110) mmol/L Carbon Dioxide 28 (21-32) mmol/L BUN 27 H (7-18) mg/dL Creatinine 1.2 H (0.55-1.02) mg/dL Est Cr Clr Drug Dosing 37.57 mL/min Estimated GFR (MDRD) 44 L (>60) BUN/Creatinine Ratio 22.5 H (9-20) Glucose 78 L (80-116) mg/dL POC Glucose 127 H (80-116) mg/dL Calcium 8.3 L (8.6-10.2) mg/dL Med Orders - Current: Current Medications Discontinued Medications Acetaminophen (Acetaminophen 500 Mg Tab *Ptom*) 500 mg PO Q6H COUNTS INCLUDE 234 BEDS AT THE [facility] Last Admin: 11/27/20 09:04 Dose: 500 mg Documented by: Clopidogrel Bisulfate (Clopidogrel 75 Mg Tab) 75 mg PO ONETIME ONE Stop: 11/26/20 12:06 Last Admin: 11/26/20 12:53 Dose: 75 mg Documented by: Clopidogrel Bisulfate (Clopidogrel 75 Mg Tab *Ptom*) 75 mg PO DAILY COUNTS INCLUDE 234 BEDS AT THE [facility] Last Admin: 11/27/20 09:00 Dose: 75 mg Documented by: Furosemide (Furosemide 40 Mg/4 Ml Vial) 40 mg IVPUSH NOW ONE Stop: 11/26/20 13:50 Last Admin: 11/26/20 15:00 Dose: 40 mg Documented by: Furosemide (Furosemide 40 Mg/4 Ml Vial) 40 mg IVPUSH BID COUNTS INCLUDE 234 BEDS AT THE [facility] Last Admin: 11/27/20 08:53 Dose: 40 mg Documented by: Gabapentin (Gabapentin 100 Mg Cap *Ptom*) 200 mg PO BID COUNTS INCLUDE 234 BEDS AT THE [facility] Last Admin: 11/27/20 09:01 Dose: 200 mg Documented by: Sodium Chloride (Normal Saline) 500 mls @ 500 mls/hr IV .BOLUS ONE Stop: 11/26/20 11:27 Last Admin: 11/26/20 11:16 Dose: 500 mls/hr Documented by: Ibuprofen (Ibuprofen 200 Mg Tab) 200 mg PO Q6H COUNTS INCLUDE 234 BEDS AT THE [facility] Last Admin: 11/27/20 09:02 Dose: 200 mg Documented by: Isosorbide Mononitrate (Isosorbide Mononitrate 60 Mg Tab.Er *Ptom*) 60 mg PO DAILY COUNTS INCLUDE 234 BEDS AT THE [facility] Last Admin: 11/27/20 08:52 Dose: 60 mg Documented by: Isosorbide Mononitrate (Isosorbide Mononitrate 10 Mg Tab) 30 mg PO ONETIME ONE Stop: 11/26/20 16:46 Last Admin: 11/26/20 16:59 Dose: 30 mg Documented by: Losartan Potassium (Losartan 100 Mg Tab) 100 mg PO .ONCE ONE Stop: 11/26/20 12:07 Last Admin: 11/26/20 13:03 Dose: 100 mg Documented by: Losartan Potassium (Losartan 100 Mg Tab *Ptom*) 100 mg PO DAILY COUNTS INCLUDE 234 BEDS AT THE [facility] Last Admin: 11/27/20 08:59 Dose: 100 mg Documented by: Metoprolol Succinate (Metoprolol Succinate 50 Mg Tab.Er) 50 mg PO ONETIME ONE Stop: 11/26/20 12:07 Last Admin: 11/26/20 13:03 Dose: 50 mg Documented by: Metoprolol Succinate (Metoprolol Succinate 50 Mg Tab.Er *Ptom*) 50 mg PO BID COUNTS INCLUDE 234 BEDS AT THE [facility] Last Admin: 11/27/20 08:51 Dose: 50 mg Documented by: Nifedipine (Nifedipine 60 Mg Tab.Er *Ptom*) 60 mg PO DAILY COUNTS INCLUDE 234 BEDS AT THE [facility] Nifedipine (Nifedipine 60 Mg Tab.Er *Ptom*) 60 mg PO ONETIME ONE Stop: 11/26/20 17:16 Last Admin: 11/26/20 17:11 Dose: 60 mg Documented by: Insulin Aspart [ Novolog] 100 Unit/Ml Pen *Ptom* 9 units SQ 0800,1200 COUNTS INCLUDE 234 BEDS AT THE [facility] Last Admin: 11/27/20 08:46 Dose: 9 units Documented by: Insulin Aspart [ Novolog] 100 Unit/Ml Pen 11 units SQ 1800 COUNTS INCLUDE 234 BEDS AT THE [facility] Last Admin: 11/26/20 18:39 Dose: 11 units Documented by: Levemir Flextouch] 100 Unit/Ml Ml *Ptom * 36 units SQ BEDTIME COUNTS INCLUDE 234 BEDS AT THE [facility] Last Admin: 11/26/20 21:38 Dose: 36 units Documented by: Rosuvastatin [ Crestor] 40 Mg Tablet *Ptom* 40 mg PO DAILY COUNTS INCLUDE 234 BEDS AT THE [facility] Last Admin: 11/27/20 09:00 Dose: 40 mg Documented by: Nystatin (Nystatin Topical Powder 15 Gm Bottle) 1 gm TOP QID COUNTS INCLUDE 234 BEDS AT THE [facility] Last Admin: 11/27/20 09:01 Dose: 1 applic Documented by: Pantoprazole Sodium (Pantoprazole 40 Mg Tab.Cr *Ptom*) 40 mg PO 0600 COUNTS INCLUDE 234 BEDS AT THE [facility] Last Admin: 11/27/20 06:08 Dose: 40 mg Documented by: Pramipexole Dihydrochloride (Pramipexole 1 Mg Tab) 1 mg PO BID PRN PRN Reason: Pain Last Admin: 11/26/20 22:28 Dose: 1 mg Documented by: Pramipexole Dihydrochloride (Pramipexole 0.25 Mg Tab) Confirm Administered Dose 1 mg .ROUTE .[facility]-MED ONE Stop: 11/26/20 22:24 Last Admin: 11/27/20 00:12 Dose: Not Given Documented by: Sodium Chloride (Sodium Chloride 0.9% 10 Ml Syringe) 10 ml FLUSH ASDIRECTED PRN PRN Reason: Keep Vein Open Last Admin: 11/27/20 08:57 Dose: 10 ml Documented by: Tramadol HCl (Tramadol 50 Mg Tab) 50 mg PO TID PRN PRN Reason: Pain Last Admin: 11/27/20 00:02 Dose: 50 mg Documented by: - Exam General: Reports: Alert, Oriented, Cooperative, No Acute Distress Lungs: Reports: Clear to Auscultation, Normal Respiratory Effort, Decreased Breath Sounds (bibasilar). Denies: Crackles, Wheezing Cardiovascular: Reports: Regular Rate, Regular Rhythm GI/Abdominal Exam: Normal Bowel Sounds, Soft, Non-Tender, No Distention Extremities: Pedal Edema (4+ BLE to groin/lower abdomen) Skin: Reports: Other (Allevyn dressing to left calf, heel) *Q Meaningful Use (DIS) - VTE *Q VTE Mechanical Contraindications *Q: At Risk for Falls
== END 2020-11-27 12:25 ==
LOC: FB.ED 10:08 → FB.MS 12:38
PROVIDERS: ADMIT Family Medicine; ATTEND Family Medicine
DX: M17.12 Unilateral primary osteoarthritis, left knee (principal); I11.0 Hypertensive heart disease with heart failure; I50.9 Heart failure, unspecified; I25.10 Atherosclerotic heart disease of native coronary artery without angina pectoris; J44.9 Chronic obstructive pulmonary disease, unspecified; E66.9 Obesity, unspecified; E11.40 Type 2 diabetes mellitus with diabetic neuropathy, unspecified; I16.0 Hypertensive urgency; R33.9 Retention of urine, unspecified; E86.0 Dehydration; E11.622 Type 2 diabetes mellitus with other skin ulcer; L89.91 Pressure ulcer of unspecified site, stage 1; B37.49 Other urogenital candidiasis; K29.50 Unspecified chronic gastritis without bleeding; M51.36 Other intervertebral disc degeneration, lumbar region; K21.9 Gastro-esophageal reflux disease without esophagitis; Z88.8 Allergy status to other drugs, medicaments and biological substances; Z91.018 Allergy to other foods; Z88.1 Allergy status to other antibiotic agents; Z79.899 Other long term (current) drug therapy; Z79.4 Long term (current) use of insulin; Z98.890 Other specified postprocedural states; Z86.73 Personal history of transient ischemic attack (TIA), and cerebral infarction without residual deficits
CPT/HCPCS: 36415; 51702; 80048; 81001; 82947; 85025; 96374; 99284; 99285-25; A9270-GY; J1940; J7040

== ENCOUNTER 2021-06-12 10:51 | Emergency (ER) | payer MEDICARE, OTHER, MEDICAID ==
[2021-06-12] MEDS ORDERED: Sodium Chloride 0.9% 10 ML Syringe FLUSH PRN (10:58)
[2021-06-12] MEDS ORDERED: 50% Dextrose in Water 50 ML Syringe IVPUSH ONE (10:58)
[2021-06-12] MEDS ORDERED: Esmolol/Normal Saline 2.5 GM/250 ML BAG IV SCH (12:30)
[2021-06-12] MEDS ORDERED: Lactated Ringers 1,000 ML IV SCH (12:30)
[2021-06-12] MEDS ORDERED: Ondansetron 4 MG/2 ML SDV IVPUSH ONE (12:47)
[2021-06-12] MEDS ORDERED: Iopamidol 755 MG/ML 150 ML Bottle IV ONE (13:07)
[2021-06-12] MEDS ORDERED: Labetalol 100 MG in Sodium Chloride 0.9% 80 ML IV SCH (14:15)
[2021-06-12] MEDS ORDERED: Labetalol 20 MG/4 ML Syringe IVPUSH ONE (14:19)
[2021-06-12] MEDS ORDERED: Nitroglycerin 2% Oint 1 GM UD Packet TOP ONE (14:19)
[2021-06-12] MEDS ORDERED: Furosemide 40 MG/4 ML VIAL IVPUSH ONE (14:20)
[2021-06-12] MEDS ORDERED: Nitroglycerin/D5W 25 MG/250 ML BOTTLE IV SCH (14:30)
[2021-06-12] MEDS ORDERED: Acetaminophen 500 MG Tab PO ONE (15:12)
[2021-06-12] MEDS ORDERED: Losartan 50 MG Tab PO ONE (15:35)
[2021-06-12] MEDS ORDERED: Isosorbide Mononitrate 30 MG Tab.ER PO ONE (15:36)
[2021-06-12] MEDS ORDERED: NIFEdipine 60 MG Tab.ER PO ONE (15:37)
[2021-06-12] MEDS ORDERED: traMADol 50 MG Tab PO ONE (15:38)
[2021-06-12] MEDS ORDERED: Metoprolol Succinate 25 MG Tab.ER PO ONE (15:40)
[2021-06-12 16:03] VITALS: BP 192/68; PULSE 80
== END 2021-06-12 17:30 | disposition home or self-care (01) ==
LOC: FB.ED 10:51
DX: E11.649 Type 2 diabetes mellitus with hypoglycemia without coma (principal); I11.0 Hypertensive heart disease with heart failure; I50.9 Heart failure, unspecified; R41.82 Altered mental status, unspecified; I25.119 Atherosclerotic heart disease of native coronary artery with unspecified angina pectoris; J44.9 Chronic obstructive pulmonary disease, unspecified; K21.9 Gastro-esophageal reflux disease without esophagitis; E66.9 Obesity, unspecified; Z68.30 Body mass index [BMI] 30.0-30.9, adult; Z88.8 Allergy status to other drugs, medicaments and biological substances; Z91.018 Allergy to other foods; Z88.1 Allergy status to other antibiotic agents; Z79.4 Long term (current) use of insulin
CPT/HCPCS: 36415; 70450; 73020; 74177; 80053; 81001; 82947; 84484; 85027; 93005; 93010; 96374; 96375; 99285; A9270; J1940; J2405; J3490; J7120; Q9967

== ENCOUNTER 2021-08-11 01:57 | Emergency (ER) | payer MEDICARE, OTHER, MEDICAID ==
[2021-08-11] MEDS: Haloperidol Lactate 5 MG/ML SDV IM ONE (02:12)
[2021-08-11] MEDS: LORazepam 2 MG/ML SDV IM ONE (02:12)
[2021-08-11 07:02] VITALS: BP 196/67; PULSE 66
[2021-08-11] MEDS ORDERED: Sodium Chloride 0.9% 10 ML Syringe FLUSH PRN (09:18)
== END 2021-08-11 08:43 | disposition home or self-care (01) ==
LOC: FB.ED 01:57
DX: N39.0 Urinary tract infection, site not specified (principal); R45.1 Restlessness and agitation; I25.119 Atherosclerotic heart disease of native coronary artery with unspecified angina pectoris; I11.0 Hypertensive heart disease with heart failure; I50.9 Heart failure, unspecified; E78.00 Pure hypercholesterolemia, unspecified; K21.9 Gastro-esophageal reflux disease without esophagitis; Z88.8 Allergy status to other drugs, medicaments and biological substances; Z91.018 Allergy to other foods; Z88.1 Allergy status to other antibiotic agents; Z91.048 Other nonmedicinal substance allergy status; Z91.012 Allergy to eggs; Z91.010 Allergy to peanuts; Z91.09 Other allergy status, other than to drugs and biological substances; Z79.02 Long term (current) use of antithrombotics/antiplatelets; Z79.4 Long term (current) use of insulin; Z79.899 Other long term (current) drug therapy
CPT/HCPCS: 51702; 81001; 87086; 87088; 87186; 96372; 99282; 99285-25; J1630; J2060

== ENCOUNTER 2021-10-24 10:28 | Emergency (ER) | payer MEDICARE, OTHER, MEDICAID ==
[2021-10-24] MEDS ORDERED: traMADol 50 MG Tab PO ONE ×2 (10:48→11:39)
[2021-10-24 16:08] VITALS: BP 175/51; PULSE 58
== END 2021-10-24 14:00 | disposition home or self-care (01) ==
LOC: FB.ED 10:28
DX: M54.50 Low back pain, unspecified (principal); I11.0 Hypertensive heart disease with heart failure; I50.9 Heart failure, unspecified; I25.10 Atherosclerotic heart disease of native coronary artery without angina pectoris; J45.909 Unspecified asthma, uncomplicated; E11.9 Type 2 diabetes mellitus without complications; E66.9 Obesity, unspecified; Z68.30 Body mass index [BMI] 30.0-30.9, adult; Z90.49 Acquired absence of other specified parts of digestive tract; Z90.710 Acquired absence of both cervix and uterus; Z79.899 Other long term (current) drug therapy; Z79.4 Long term (current) use of insulin; Z88.6 Allergy status to analgesic agent; Z91.09 Other allergy status, other than to drugs and biological substances; Z91.018 Allergy to other foods; Z91.048 Other nonmedicinal substance allergy status; Z91.012 Allergy to eggs; Z88.8 Allergy status to other drugs, medicaments and biological substances; Z88.1 Allergy status to other antibiotic agents; Z91.010 Allergy to peanuts
CPT/HCPCS: 81001; 99284; A9270; 99282

== ENCOUNTER 2021-10-30 10:13 | Inpatient (IN) | payer MEDICARE, OTHER, MEDICAID ==
[2021-10-30] MEDS ORDERED: Sulfamethoxazole/Trimethoprim 800-160 MG Tab PO ONE (12:00)
[2021-10-30] MEDS ORDERED: Ondansetron 4 MG Tab.DIS PO PRN ×2 (13:52→17:34)
[2021-10-30] MEDS ORDERED: Sulfamethoxazole/Trimethoprim 800-160 MG Tab PO SCH (14:00)
[2021-10-30] MEDS: Enoxaparin 40 MG/0.4 ML Syringe SUBCUT SCH (15:05)
[2021-10-30] MEDS ORDERED: Loperamide 2 MG Cap PO PRN (17:34)
[2021-10-30] MEDS ORDERED: Nitroglycerin 0.4 MG Tab.SL SL PRN (17:34)
[2021-10-30] MEDS ORDERED: guaiFENesin 100 MG/5 ML Soln 5 ML UD Cup PO PRN (17:34)
[2021-10-30] MEDS ORDERED: Glucagon,Human Recombinant 1 MG Vial IM PRN (17:37)
[2021-10-30] MEDS ORDERED: 50% Dextrose in Water 50 ML Syringe IVPUSH PRN (17:37)
[2021-10-30] MEDS: Insulin Lispro 100 Unit/ML 3 ML KwikPen SUBCUT SCH (19:41)
[2021-10-30] MEDS: Gabapentin 100 MG Cap PO SCH (21:24)
[2021-10-30] MEDS: Ferrous Sulfate 325 MG Tab PO SCH (21:24)
[2021-10-30] MEDS: Sulfamethoxazole/Trimethoprim 800-160 MG Tab PO SCH (21:24)
[2021-10-31] MEDS: Pantoprazole 40 MG Tab.CR PO SCH (05:46)
[2021-10-31] MEDS: Gabapentin 100 MG Cap PO SCH ×2 (08:31→20:20)
[2021-10-31] MEDS: Sulfamethoxazole/Trimethoprim 800-160 MG Tab PO SCH ×2 (08:34→20:22)
[2021-10-31] MEDS ORDERED: Losartan 100 MG Tab PO SCH (09:00)
[2021-10-31] MEDS ORDERED: Isosorbide Mononitrate 60 MG Tab.ER PO SCH (09:00)
[2021-10-31] MEDS: Insulin Lispro 100 Unit/ML 3 ML KwikPen SUBCUT SCH ×3 (12:18→17:40)
[2021-10-31] MEDS ORDERED: Multivitamin Tab PO ONE (14:00)
[2021-10-31] MEDS ORDERED: Clopidogrel 75 MG Tab PO ONE (14:00)
[2021-10-31] MEDS ORDERED: Insulin Glargine,Human Rec. Analog 100 Units/ML 3 ML Pen SUBCUT ONE ×2 (14:00→14:39)
[2021-10-31] MEDS ORDERED: Ferrous Sulfate 325 MG Tab PO ONE (14:00)
[2021-10-31] MEDS ORDERED: Losartan 100 MG Tab PO ONE (14:00)
[2021-10-31] MEDS ORDERED: Rosuvastatin 20 MG Tab PO ONE (14:00)
[2021-10-31] MEDS ORDERED: NIFEdipine 30 MG Tab.ER PO ONE (14:00)
[2021-10-31] MEDS ORDERED: Metoprolol Succinate 50 MG Tab.ER PO ONE (14:00)
[2021-10-31] MEDS ORDERED: Isosorbide Mononitrate 60 MG Tab.ER PO ONE (14:00)
[2021-10-31] MEDS ORDERED: Isosorbide Mononitrate 30 MG Tab.ER PO ONE (14:30)
[2021-10-31] MEDS: Rosuvastatin 20 MG Tab PO SCH (14:33)
[2021-10-31] MEDS: Ferrous Sulfate 325 MG Tab PO SCH ×2 (14:34→20:20)
[2021-10-31] MEDS: Torsemide 20 MG Tab PO SCH ×2 (14:34→14:44)
[2021-10-31] MEDS: Clopidogrel 75 MG Tab PO SCH (14:34)
[2021-10-31] MEDS: Insulin Glargine,Human Rec. Analog 100 Units/ML 3 ML Pen SUBCUT SCH (14:34)
[2021-10-31] MEDS: NIFEdipine 30 MG Tab.ER PO SCH (14:34)
[2021-10-31] MEDS: Metoprolol Succinate 50 MG Tab.ER PO SCH (14:35)
[2021-10-31] MEDS: Multivitamin Tab PO SCH (14:35)
[2021-10-31] MEDS: Enoxaparin 40 MG/0.4 ML Syringe SUBCUT SCH (14:45)
[2021-10-31] MEDS: traMADol 50 MG Tab PO PRN (20:20)
[2021-11-01] MEDS: traMADol 50 MG Tab PO PRN ×2 (05:13→20:11)
[2021-11-01] MEDS: Pantoprazole 40 MG Tab.CR PO SCH (05:13)
[2021-11-01] MEDS: Insulin Lispro 100 Unit/ML 3 ML KwikPen SUBCUT SCH ×3 (08:00→17:47)
[2021-11-01] MEDS: Rosuvastatin 20 MG Tab PO SCH (08:01)
[2021-11-01] MEDS: Sulfamethoxazole/Trimethoprim 800-160 MG Tab PO SCH ×2 (08:01→20:10)
[2021-11-01] MEDS: Insulin Glargine,Human Rec. Analog 100 Units/ML 3 ML Pen SUBCUT SCH (08:12)
[2021-11-01] MEDS: Clopidogrel 75 MG Tab PO SCH (08:12)
[2021-11-01] MEDS: Gabapentin 100 MG Cap PO SCH ×2 (08:12→20:10)
[2021-11-01] MEDS: Metoprolol Succinate 50 MG Tab.ER PO SCH (08:12)
[2021-11-01] MEDS: Ferrous Sulfate 325 MG Tab PO SCH ×2 (08:12→20:10)
[2021-11-01] MEDS: Multivitamin Tab PO SCH (08:12)
[2021-11-01] MEDS ORDERED: Losartan 50 MG Tab PO SCH (09:00)
[2021-11-01] MEDS ORDERED: Isosorbide Mononitrate 30 MG Tab.ER PO SCH (09:00)
[2021-11-01] MEDS: Torsemide 20 MG Tab PO SCH ×2 (09:06→14:18)
[2021-11-01] MEDS: NIFEdipine 30 MG Tab.ER PO SCH (09:06)
[2021-11-01] MEDS: Enoxaparin 40 MG/0.4 ML Syringe SUBCUT SCH (14:18)
[2021-11-02] MEDS: Pantoprazole 40 MG Tab.CR PO SCH (05:25)
[2021-11-02] MEDS: Insulin Lispro 100 Unit/ML 3 ML KwikPen SUBCUT SCH ×3 (07:34→17:29)
[2021-11-02] MEDS: Insulin Glargine,Human Rec. Analog 100 Units/ML 3 ML Pen SUBCUT SCH (09:02)
[2021-11-02] MEDS: Gabapentin 100 MG Cap PO SCH ×2 (09:02→20:00)
[2021-11-02] MEDS: Torsemide 20 MG Tab PO SCH ×2 (09:03→12:47)
[2021-11-02] MEDS: Ferrous Sulfate 325 MG Tab PO SCH ×2 (09:03→20:00)
[2021-11-02] MEDS: Sulfamethoxazole/Trimethoprim 800-160 MG Tab PO SCH ×2 (09:03→20:00)
[2021-11-02] MEDS: NIFEdipine 30 MG Tab.ER PO SCH (09:03)
[2021-11-02] MEDS: Metoprolol Succinate 50 MG Tab.ER PO SCH (09:03)
[2021-11-02] MEDS: Multivitamin Tab PO SCH (09:04)
[2021-11-02] MEDS: Isosorbide Mononitrate 60 MG Tab.ER PO SCH (09:04)
[2021-11-02] MEDS: Rosuvastatin 20 MG Tab PO SCH (09:04)
[2021-11-02] MEDS: Clopidogrel 75 MG Tab PO SCH (09:04)
[2021-11-02] MEDS: Losartan 100 MG Tab PO SCH (09:10)
[2021-11-02] MEDS: Enoxaparin 40 MG/0.4 ML Syringe SUBCUT SCH (13:00)
[2021-11-02] MEDS: traMADol 50 MG Tab PO PRN (20:04)
[2021-11-03] MEDS: Pantoprazole 40 MG Tab.CR PO SCH (05:40)
[2021-11-03] MEDS: Insulin Lispro 100 Unit/ML 3 ML KwikPen SUBCUT SCH (07:35)
[2021-11-03] MEDS: NIFEdipine 30 MG Tab.ER PO SCH (08:04)
[2021-11-03] MEDS: Rosuvastatin 20 MG Tab PO SCH (08:05)
[2021-11-03] MEDS: Metoprolol Succinate 50 MG Tab.ER PO SCH (08:05)
[2021-11-03] MEDS: Clopidogrel 75 MG Tab PO SCH (08:05)
[2021-11-03] MEDS: Ferrous Sulfate 325 MG Tab PO SCH (08:06)
[2021-11-03] MEDS: Multivitamin Tab PO SCH (08:06)
[2021-11-03] MEDS: Sulfamethoxazole/Trimethoprim 800-160 MG Tab PO SCH (08:06)
[2021-11-03] MEDS: Losartan 100 MG Tab PO SCH (08:07)
[2021-11-03] MEDS: Isosorbide Mononitrate 60 MG Tab.ER PO SCH (08:07)
[2021-11-03] MEDS: Torsemide 20 MG Tab PO SCH (08:08)
[2021-11-03 08:09] VITALS: BP 169/50; PULSE 57
[2021-11-03] MEDS: Insulin Glargine,Human Rec. Analog 100 Units/ML 3 ML Pen SUBCUT SCH (08:10)
== END 2021-11-03 07:59 | disposition swing bed (61) | DRG 699 ==
LOC: FB.ED 10:13 → FB.MS 13:52 → OBSVTOIN 10-31 12:35
PROVIDERS: ADMIT Family Medicine; ATTEND Family Medicine
DX: T83.592A Infection and inflammatory reaction due to indwelling ureteral stent, initial encounter (principal); T83.511A Infection and inflammatory reaction due to indwelling urethral catheter, initial encounter; D64.9 Anemia, unspecified; I13.0 Hypertensive heart and chronic kidney disease with heart failure and stage 1 through stage 4 chronic kidney disease, or unspecified chronic kidney disease; Z68.43 Body mass index [BMI] 50.0-59.9, adult; N39.0 Urinary tract infection, site not specified; Z88.6 Allergy status to analgesic agent; Z91.09 Other allergy status, other than to drugs and biological substances; Z88.8 Allergy status to other drugs, medicaments and biological substances; Z91.018 Allergy to other foods; E11.42 Type 2 diabetes mellitus with diabetic polyneuropathy; E11.43 Type 2 diabetes mellitus with diabetic autonomic (poly)neuropathy; K31.84 Gastroparesis; Z88.1 Allergy status to other antibiotic agents; Z91.010 Allergy to peanuts; Z91.012 Allergy to eggs; Z79.899 Other long term (current) drug therapy; Z79.02 Long term (current) use of antithrombotics/antiplatelets; Z79.4 Long term (current) use of insulin; Z91.048 Other nonmedicinal substance allergy status; I25.10 Atherosclerotic heart disease of native coronary artery without angina pectoris; I50.9 Heart failure, unspecified; E78.00 Pure hypercholesterolemia, unspecified; Z95.5 Presence of coronary angioplasty implant and graft; J44.9 Chronic obstructive pulmonary disease, unspecified; G47.30 Sleep apnea, unspecified; Z51.5 Encounter for palliative care; K21.9 Gastro-esophageal reflux disease without esophagitis; M19.90 Unspecified osteoarthritis, unspecified site; G89.29 Other chronic pain; M54.9 Dorsalgia, unspecified; M79.7 Fibromyalgia; M54.2 Cervicalgia; M81.0 Age-related osteoporosis without current pathological fracture; G43.909 Migraine, unspecified, not intractable, without status migrainosus; M47.816 Spondylosis without myelopathy or radiculopathy, lumbar region; E11.40 Type 2 diabetes mellitus with diabetic neuropathy, unspecified; F41.9 Anxiety disorder, unspecified; F32.A Depression, unspecified; E66.9 Obesity, unspecified; M85.80 Other specified disorders of bone density and structure, unspecified site; Z79.01 Long term (current) use of anticoagulants; Z86.19 Personal history of other infectious and parasitic diseases; Z98.49 Cataract extraction status, unspecified eye; Z90.89 Acquired absence of other organs; Z90.49 Acquired absence of other specified parts of digestive tract; Z90.710 Acquired absence of both cervix and uterus; Z66 Do not resuscitate; E86.0 Dehydration; R26.2 Difficulty in walking, not elsewhere classified; N18.32 Chronic kidney disease, stage 3b
CPT/HCPCS: 36415 ×2; 80048; 80053; 81001; 82550; 85025 ×2; 87086; 96372; 99284; A9270 ×7; J1650; J1815 ×2; 97161-GP; 97167-GO; 97530-GO; 97535-GO; 97542-GO

== ENCOUNTER 2021-11-03 08:00 | Inpatient (IN) | payer MEDICARE, OTHER, MEDICAID ==
[2021-11-03] MEDS ORDERED: Loperamide 2 MG Cap PO PRN (08:56)
[2021-11-03] MEDS ORDERED: Ondansetron 4 MG Tab.DIS PO PRN (08:56)
[2021-11-03] MEDS ORDERED: Nitroglycerin 0.4 MG Tab.SL SL PRN (08:56)
[2021-11-03] MEDS ORDERED: guaiFENesin 100 MG/5 ML Soln 5 ML UD Cup PO PRN (08:56)
[2021-11-03] MEDS ORDERED: Glucagon,Human Recombinant 1 MG Vial IM PRN (09:01)
[2021-11-03] MEDS ORDERED: 50% Dextrose in Water 50 ML Syringe IVPUSH PRN (09:01)
[2021-11-03] MEDS: Gabapentin 100 MG Cap PO SCH ×2 (09:23→20:14)
[2021-11-03] MEDS: Torsemide 20 MG Tab PO SCH (12:29)
[2021-11-03] MEDS: Insulin Lispro 100 Unit/ML 3 ML KwikPen SUBCUT SCH ×2 (12:31→17:22)
[2021-11-03] MEDS: Ferrous Sulfate 325 MG Tab PO SCH (20:14)
[2021-11-03] MEDS: Nystatin Topical Powder 15 GM Bottle TOP SCH (20:14)
[2021-11-03] MEDS: traMADol 50 MG Tab PO PRN (20:30)
[2021-11-04] MEDS: traMADol 50 MG Tab PO PRN ×2 (01:44→20:33)
[2021-11-04] MEDS: Pantoprazole 40 MG Tab.CR PO SCH (05:49)
[2021-11-04] MEDS: Insulin Lispro 100 Unit/ML 3 ML KwikPen SUBCUT SCH ×3 (08:15→17:33)
[2021-11-04] MEDS: Rosuvastatin 20 MG Tab PO SCH (08:18)
[2021-11-04] MEDS: Clopidogrel 75 MG Tab PO SCH (08:18)
[2021-11-04] MEDS: Ferrous Sulfate 325 MG Tab PO SCH ×2 (08:18→20:23)
[2021-11-04] MEDS: Metoprolol Succinate 50 MG Tab.ER PO SCH (08:19)
[2021-11-04] MEDS: Isosorbide Mononitrate 60 MG Tab.ER PO SCH (08:20)
[2021-11-04] MEDS: Nystatin Topical Powder 15 GM Bottle TOP SCH ×2 (08:20→20:23)
[2021-11-04] MEDS: Losartan 100 MG Tab PO SCH (08:21)
[2021-11-04] MEDS: Torsemide 20 MG Tab PO SCH ×2 (08:23→11:56)
[2021-11-04] MEDS: Multivitamin Tab PO SCH (08:24)
[2021-11-04] MEDS: NIFEdipine 30 MG Tab.ER PO SCH (08:24)
[2021-11-04] MEDS: Insulin Glargine,Human Rec. Analog 100 Units/ML 3 ML Pen SUBCUT SCH (08:25)
[2021-11-04] MEDS: Gabapentin 100 MG Cap PO SCH ×2 (08:38→20:21)
[2021-11-05] MEDS: Pantoprazole 40 MG Tab.CR PO SCH (05:15)
[2021-11-05] MEDS: Insulin Lispro 100 Unit/ML 3 ML KwikPen SUBCUT SCH ×3 (08:06→18:01)
[2021-11-05] MEDS: Clopidogrel 75 MG Tab PO SCH (08:31)
[2021-11-05] MEDS: Losartan 100 MG Tab PO SCH (08:31)
[2021-11-05] MEDS: Rosuvastatin 20 MG Tab PO SCH (08:32)
[2021-11-05] MEDS: Gabapentin 100 MG Cap PO SCH ×2 (08:33→20:47)
[2021-11-05] MEDS: Torsemide 20 MG Tab PO SCH ×2 (08:33→12:06)
[2021-11-05] MEDS: Ferrous Sulfate 325 MG Tab PO SCH ×2 (08:33→20:44)
[2021-11-05] MEDS: Nystatin Topical Powder 15 GM Bottle TOP SCH ×2 (08:33→20:41)
[2021-11-05] MEDS: Isosorbide Mononitrate 60 MG Tab.ER PO SCH (08:33)
[2021-11-05] MEDS: Multivitamin Tab PO SCH (08:36)
[2021-11-05] MEDS: Metoprolol Succinate 50 MG Tab.ER PO SCH (08:36)
[2021-11-05] MEDS: NIFEdipine 30 MG Tab.ER PO SCH (08:36)
[2021-11-05] MEDS: Insulin Glargine,Human Rec. Analog 100 Units/ML 3 ML Pen SUBCUT SCH (08:37)
[2021-11-05] MEDS ORDERED: Insulin Lispro 100 Unit/ML 3 ML KwikPen SUBCUT ONE (17:59)
[2021-11-05] MEDS: traMADol 50 MG Tab PO PRN (20:47)
[2021-11-06] MEDS: Pantoprazole 40 MG Tab.CR PO SCH (05:45)
[2021-11-06] MEDS: Insulin Lispro 100 Unit/ML 3 ML KwikPen SUBCUT SCH ×3 (08:28→17:49)
[2021-11-06] MEDS: Gabapentin 100 MG Cap PO SCH ×2 (08:29→20:46)
[2021-11-06] MEDS: Torsemide 20 MG Tab PO SCH ×2 (08:30→11:52)
[2021-11-06] MEDS: Ferrous Sulfate 325 MG Tab PO SCH ×2 (08:30→20:46)
[2021-11-06] MEDS: Multivitamin Tab PO SCH (08:30)
[2021-11-06] MEDS: Clopidogrel 75 MG Tab PO SCH (08:30)
[2021-11-06] MEDS: Nystatin Topical Powder 15 GM Bottle TOP SCH ×2 (08:30→20:47)
[2021-11-06] MEDS: Losartan 100 MG Tab PO SCH (08:31)
[2021-11-06] MEDS: NIFEdipine 30 MG Tab.ER PO SCH (08:32)
[2021-11-06] MEDS: Metoprolol Succinate 50 MG Tab.ER PO SCH (08:32)
[2021-11-06] MEDS: Isosorbide Mononitrate 60 MG Tab.ER PO SCH (08:32)
[2021-11-06] MEDS: Rosuvastatin 20 MG Tab PO SCH (08:35)
[2021-11-06] MEDS: Insulin Glargine,Human Rec. Analog 100 Units/ML 3 ML Pen SUBCUT SCH (08:36)
[2021-11-06] MEDS: traMADol 50 MG Tab PO PRN (20:46)
[2021-11-07] MEDS: Pantoprazole 40 MG Tab.CR PO SCH (05:44)
[2021-11-07] MEDS: Insulin Lispro 100 Unit/ML 3 ML KwikPen SUBCUT SCH ×3 (07:57→17:49)
[2021-11-07] MEDS: Losartan 100 MG Tab PO SCH (08:00)
[2021-11-07] MEDS: Isosorbide Mononitrate 60 MG Tab.ER PO SCH (08:00)
[2021-11-07] MEDS: Metoprolol Succinate 50 MG Tab.ER PO SCH (08:00)
[2021-11-07] MEDS: NIFEdipine 30 MG Tab.ER PO SCH (08:00)
[2021-11-07] MEDS: Torsemide 20 MG Tab PO SCH ×2 (08:00→12:08)
[2021-11-07] MEDS: Multivitamin Tab PO SCH (08:00)
[2021-11-07] MEDS: Ferrous Sulfate 325 MG Tab PO SCH ×2 (08:01→22:09)
[2021-11-07] MEDS: Rosuvastatin 20 MG Tab PO SCH (08:01)
[2021-11-07] MEDS: Clopidogrel 75 MG Tab PO SCH (08:01)
[2021-11-07] MEDS: Nystatin Topical Powder 15 GM Bottle TOP SCH ×2 (08:01→22:10)
[2021-11-07] MEDS: Gabapentin 100 MG Cap PO SCH ×2 (08:05→22:09)
[2021-11-07] MEDS: Insulin Glargine,Human Rec. Analog 100 Units/ML 3 ML Pen SUBCUT SCH (08:06)
[2021-11-07] MEDS: traMADol 50 MG Tab PO PRN (22:09)
[2021-11-08] MEDS: Pantoprazole 40 MG Tab.CR PO SCH (06:30)
[2021-11-08] MEDS: Ferrous Sulfate 325 MG Tab PO SCH ×2 (08:19→21:14)
[2021-11-08] MEDS: Losartan 100 MG Tab PO SCH (08:19)
[2021-11-08] MEDS: Torsemide 20 MG Tab PO SCH ×2 (08:19→12:04)
[2021-11-08] MEDS: Isosorbide Mononitrate 60 MG Tab.ER PO SCH (08:19)
[2021-11-08] MEDS: Gabapentin 100 MG Cap PO SCH ×2 (08:19→21:14)
[2021-11-08] MEDS: Nystatin Topical Powder 15 GM Bottle TOP SCH ×2 (08:20→21:16)
[2021-11-08] MEDS: Clopidogrel 75 MG Tab PO SCH (08:20)
[2021-11-08] MEDS: Multivitamin Tab PO SCH (08:20)
[2021-11-08] MEDS: Metoprolol Succinate 50 MG Tab.ER PO SCH (08:21)
[2021-11-08] MEDS: NIFEdipine 30 MG Tab.ER PO SCH (08:21)
[2021-11-08] MEDS: Rosuvastatin 20 MG Tab PO SCH (08:21)
[2021-11-08] MEDS: Insulin Lispro 100 Unit/ML 3 ML KwikPen SUBCUT SCH ×3 (08:23→17:57)
[2021-11-08] MEDS: Insulin Glargine,Human Rec. Analog 100 Units/ML 3 ML Pen SUBCUT SCH (08:24)
[2021-11-08] MEDS: traMADol 50 MG Tab PO PRN ×2 (14:19→21:15)
[2021-11-09] MEDS: Pantoprazole 40 MG Tab.CR PO SCH (05:41)
[2021-11-09] MEDS: Insulin Lispro 100 Unit/ML 3 ML KwikPen SUBCUT SCH ×3 (08:35→18:23)
[2021-11-09] MEDS: Torsemide 20 MG Tab PO SCH ×2 (09:19→12:11)
[2021-11-09] MEDS: Metoprolol Succinate 50 MG Tab.ER PO SCH (09:19)
[2021-11-09] MEDS: Ferrous Sulfate 325 MG Tab PO SCH ×2 (09:20→20:00)
[2021-11-09] MEDS: Losartan 100 MG Tab PO SCH (09:21)
[2021-11-09] MEDS: Clopidogrel 75 MG Tab PO SCH (09:21)
[2021-11-09] MEDS: Rosuvastatin 20 MG Tab PO SCH (09:21)
[2021-11-09] MEDS: Isosorbide Mononitrate 60 MG Tab.ER PO SCH (09:22)
[2021-11-09] MEDS: Multivitamin Tab PO SCH (09:23)
[2021-11-09] MEDS: NIFEdipine 30 MG Tab.ER PO SCH (09:24)
[2021-11-09] MEDS: Nystatin Topical Powder 15 GM Bottle TOP SCH ×2 (09:24→20:00)
[2021-11-09] MEDS: Insulin Glargine,Human Rec. Analog 100 Units/ML 3 ML Pen SUBCUT SCH (09:28)
[2021-11-09] MEDS: Gabapentin 100 MG Cap PO SCH ×2 (09:30→20:00)
[2021-11-09] MEDS: traMADol 50 MG Tab PO PRN (19:55)
[2021-11-10] MEDS: Pantoprazole 40 MG Tab.CR PO SCH (05:10)
[2021-11-10] MEDS: Insulin Lispro 100 Unit/ML 3 ML KwikPen SUBCUT SCH ×3 (07:00→18:21)
[2021-11-10] MEDS: Ferrous Sulfate 325 MG Tab PO SCH ×2 (08:16→20:20)
[2021-11-10] MEDS: Clopidogrel 75 MG Tab PO SCH (08:16)
[2021-11-10] MEDS: Rosuvastatin 20 MG Tab PO SCH (08:17)
[2021-11-10] MEDS: Torsemide 20 MG Tab PO SCH ×2 (08:17→11:48)
[2021-11-10] MEDS: Nystatin Topical Powder 15 GM Bottle TOP SCH ×2 (08:19→20:20)
[2021-11-10] MEDS: Losartan 100 MG Tab PO SCH (08:19)
[2021-11-10] MEDS: Gabapentin 100 MG Cap PO SCH ×2 (08:19→20:20)
[2021-11-10] MEDS: Isosorbide Mononitrate 60 MG Tab.ER PO SCH (08:19)
[2021-11-10] MEDS: NIFEdipine 30 MG Tab.ER PO SCH (08:20)
[2021-11-10] MEDS: Multivitamin Tab PO SCH (08:20)
[2021-11-10] MEDS: Metoprolol Succinate 50 MG Tab.ER PO SCH (08:21)
[2021-11-10] MEDS: Insulin Glargine,Human Rec. Analog 100 Units/ML 3 ML Pen SUBCUT SCH (08:26)
[2021-11-10] MEDS: traMADol 50 MG Tab PO PRN (20:20)
[2021-11-11] MEDS: Pantoprazole 40 MG Tab.CR PO SCH (05:24)
[2021-11-11] MEDS: Insulin Lispro 100 Unit/ML 3 ML KwikPen SUBCUT SCH (08:17)
[2021-11-11] MEDS: Ferrous Sulfate 325 MG Tab PO SCH (08:18)
[2021-11-11] MEDS: Clopidogrel 75 MG Tab PO SCH (08:18)
[2021-11-11] MEDS: Multivitamin Tab PO SCH (08:18)
[2021-11-11] MEDS: Gabapentin 100 MG Cap PO SCH (08:18)
[2021-11-11] MEDS: Nystatin Topical Powder 15 GM Bottle TOP SCH (08:18)
[2021-11-11] MEDS: Torsemide 20 MG Tab PO SCH (08:18)
[2021-11-11] MEDS: Rosuvastatin 20 MG Tab PO SCH (08:19)
[2021-11-11] MEDS: Insulin Glargine,Human Rec. Analog 100 Units/ML 3 ML Pen SUBCUT SCH (08:22)
[2021-11-11] MEDS: Isosorbide Mononitrate 60 MG Tab.ER PO SCH (08:24)
[2021-11-11] MEDS: Losartan 100 MG Tab PO SCH (08:24)
[2021-11-11] MEDS: NIFEdipine 30 MG Tab.ER PO SCH (08:24)
[2021-11-11] MEDS: Metoprolol Succinate 50 MG Tab.ER PO SCH (08:24)
[2021-11-11 08:25] VITALS: BP 163/51; PULSE 52
== END 2021-11-11 11:10 | disposition home health service (06) | DRG 948 ==
LOC: FB.MS 08:00 → UNDOADMIN 08:00
PROVIDERS: ADMIT Family Medicine; ATTEND Family Medicine
DX: R53.1 Weakness (principal); Z68.43 Body mass index [BMI] 50.0-59.9, adult; I25.10 Atherosclerotic heart disease of native coronary artery without angina pectoris; I50.9 Heart failure, unspecified; E78.00 Pure hypercholesterolemia, unspecified; I49.9 Cardiac arrhythmia, unspecified; Z95.5 Presence of coronary angioplasty implant and graft; J44.9 Chronic obstructive pulmonary disease, unspecified; K21.9 Gastro-esophageal reflux disease without esophagitis; M19.90 Unspecified osteoarthritis, unspecified site; G89.29 Other chronic pain; M54.9 Dorsalgia, unspecified; M79.7 Fibromyalgia; M54.2 Cervicalgia; M81.0 Age-related osteoporosis without current pathological fracture; M47.816 Spondylosis without myelopathy or radiculopathy, lumbar region; G43.909 Migraine, unspecified, not intractable, without status migrainosus; I11.0 Hypertensive heart disease with heart failure; I89.0 Lymphedema, not elsewhere classified; E66.01 Morbid (severe) obesity due to excess calories; E11.42 Type 2 diabetes mellitus with diabetic polyneuropathy; G51.0 Bell's palsy; E66.9 Obesity, unspecified; Z79.01 Long term (current) use of anticoagulants; Z86.19 Personal history of other infectious and parasitic diseases; Z88.6 Allergy status to analgesic agent; Z97.8 Presence of other specified devices; Z88.8 Allergy status to other drugs, medicaments and biological substances; Z91.018 Allergy to other foods; Z88.1 Allergy status to other antibiotic agents; Z91.09 Other allergy status, other than to drugs and biological substances; Z91.012 Allergy to eggs; Z79.02 Long term (current) use of antithrombotics/antiplatelets; Z79.899 Other long term (current) drug therapy; Z79.4 Long term (current) use of insulin; Z98.49 Cataract extraction status, unspecified eye; Z90.89 Acquired absence of other organs; Z90.49 Acquired absence of other specified parts of digestive tract; Z90.710 Acquired absence of both cervix and uterus; Z98.1 Arthrodesis status
CPT/HCPCS: 97110-GP; 97530-GO; 97530-GP; 97535-GO; 97542-GO; 99305; 99308; 99315; A9270-GY; J1815; J1815-GY